=== PATIENT | female | born 1960 | race Hispanic/Latino ===

== ENCOUNTER 2017-12-13 13:20 | Emergency (ER) | payer OTHER ==
[2017-12-13 13:27] VITALS: RESP 17
--- NOTE | 2017-12-13 14:23 | ED PDOC ---
Lower Extremity Pain/Injury Time Seen by Provider: 12/13/17 13:39 Chief Complaint (Nursing): Lower Extremity Problem/Injury Chief Complaint (Provider): LOWER LEG PAIN History Per: Patient (57 Y/O FEMALE HERE WITH INTERMITTENT, ONGOING ERYTHEMA LOWER EXTREMITY X FEW WEEKS WITH TREATMENT WITH AUGMENTIN AND THEN BACTRIM BY PMD. PATIENT ADVISED TO F/U IN ED FOR WORSENING SYMPTOMS. DENIES ANY FEVERS/ CHILLS. HAS REFERRAL TO PODIATRY BUT HAS NOT SEEN OF YET.) Past Medical History Reviewed: Historical Data, Nursing Documentation, Vital Signs Vital Signs: Last Vital Signs Temp 99 F 12/13/17 13:24 Pulse 104 H 12/13/17 13:24 Resp 17 12/13/17 13:24 BP Pulse Ox 99 12/13/17 13:24 - Family History Family History: States: No Known Family Hx - Home Medications Home Medications: Ambulatory Orders Medication Instructions Recorded Compression Socks, Medium [Futuro 1 each MC DAILY PRN #1 each 12/13/17 Restoring] - Allergies Allergies/Adverse Reactions: Allergies Allergy/AdvReac Type Severity Reaction Status Date / Time No Known Allergies Allergy Verified 12/13/17 13:24 Review of Systems ROS Statement: Except As Marked, All Systems Reviewed And Found Negative Physical Exam - Reviewed Nursing Documentation Reviewed: Yes Vital Signs Reviewed: Yes - Physical Exam Appears: Positive for: Well, Non-toxic, No Acute Distress Head Exam: Positive for: ATRAUMATIC, NORMAL INSPECTION, NORMOCEPHALIC Skin: Positive for: Normal Color, Warm, DRY Eye Exam: Positive for: EOMI, Normal appearance, PERRL ENT: Positive for: Normal ENT Inspection Neck: Positive for: Normal, Painless ROM Cardiovascular/Chest: Positive for: Regular Rate, Rhythm Respiratory: Positive for: CNT, Normal Breath Sounds Gastrointestinal/Abdominal: Positive for: Normal Exam, Soft Back: Positive for: Normal Inspection Extremity: Positive for: Normal ROM, Swelling (BILATERAL LOWER EXTREMITY EDEMA. MINIMAL ERYTHEMA NOTED PRE-TIBIAL) Neurologic/Psych: Positive for: Alert, Oriented - Laboratory Results Result Diagrams: 12/13/17 14:39 - ECG O2 Sat by Pulse Oximetry: 99 - Progress ED Course And Treament: DUPLEX: NEG FOR DVT SEEN BY PODIATRY GUO DRESSING PLACED BY THEM. PATIENT TO F/U WITH [facility]PAT[facility]. COMPRESSION STOCKING RX BP 144/77 Disposition - Clinical Impression Clinical Impression: Bilateral lower extremity edema - Patient ED Disposition Is Patient to be Admitted: No - Disposition Referrals: Keyur Toussaint DPM [Staff Provider] - Disposition: Routine/Home Disposition Time: 15:54 Condition: IMPROVED Prescriptions: Compression Socks, Medium [Futuro Restoring] 1 each MC DAILY PRN #1 each PRN Reason: Swelling Instructions: Dependent Edema (DC)
[2017-12-13 14:44] LABS: BASO % 0.5 % (0.0-2.0); EOS # 0.1 K/uL (0.0-0.7); EOS % 1.4 % (0.0-4.0); HEMOGLOBIN 13.6 g/dL (12.0-16.0); LYMPH # 2.1 K/uL (1.0-4.3); LYMPH % 26.2 % (20.0-40.0); MEAN CELL VOLUME 85.9 fl (81.0-99.0); MEAN CORPUSCULAR HEMOGLOBIN 28.9 pg (27.0-31.0); MEAN CORPUSCULAR HGB CONC 33.6 g/dL (33.0-37.0); MEAN PLATELET VOLUME 8.7 fl (7.2-11.7); MONO # 0.5 K/uL (0.0-0.8); MONO % 5.8 % (0.0-10.0); NEUT # 5.2 K/uL (1.8-7.0); NEUT % 66.1 % (50.0-75.0); NRBC % 0.1 % (0.0-0.0); RBC 4.7 Mil/uL (3.80-5.20); RED CELL DISTRIBUTION WIDTH 14.6 % (11.5-14.5); WHITE BLOOD COUNT 7.9 K/uL (4.8-10.8)
--- NOTE | 2017-12-13 14:58 | CP.PCM.CON ---
History of Present Illness - History of Present Illness History of Present Illness: Podiatry consult notes for attending Dr. Walden 57 y/o F patient with PMH of HTN and DM seen and examined at the ED for b/l LE swelling, redness and pain. Patient is AAO X 3 and NAD. Patient is setting comfortably in bed. Patient states that her problem started last march when she had swelling in both of her legs. She states that her legs were weeping. She states that by that time she didn't have insurance so she went to a walk-in clinic where an antibiotic were prescribed to her and she took it and felt better. patient states that last August she started to develop swelling again in both legs with minute weeping superficial ulcers. She states that by that time she got insurance so, She went to an MD Doctor who gave her augmentin antibiotic and took culuture from her ulcers. Patient states that her culture came back as staph aureus. Her doctor Switched her to bactrim. Patient states that she felt better after finishing the bactrimcourse. Patient states that a week ago she started to develop some redness and pain in the side of her legs Left > Right. Patient states that she comes to the ED because of that. atient denies any F/N/V/C/ or SOB. Patient denies any other pedal complaint. PMH: DM, HTN PSH: None Allergies: NKDA Social HX: Denies smoking, EtOH use and illicit drug use. Review of Systems - Review of Systems Review of Systems: As Per HPI Past Patient History - Past Social History Smoking Status: Never Smoked - PSYCHIATRIC Hx Substance Use: No Meds Home Medications: Home Medication List Medication Instructions Recorded Confirmed Type Compression Socks, Medium [Futuro 1 each MC DAILY PRN #1 each 12/13/17 Rx Restoring] Allergies/Adverse Reactions: Allergies Allergy/AdvReac Type Severity Reaction Status Date / Time No Known Allergies Allergy Verified 12/13/17 13:24 Physical Exam - Constitutional Appears: Well, Non-toxic, No Acute Distress - Head Exam Head Exam: ATRAUMATIC, NORMOCEPHALIC - Extremities Exam Additional comments: LE focused exam: Vasc: DP 2/4 b/l. PT couldn't be palpated due to edema. Cap refill < 3 sec in all digits. Temp gradient from warm to warm b/l. Massive LE non pitting edema extending up to the tibial tuberosity b/l. Neuro: Protective and gross sensation are intact. Derm: No open lesions, mild erythema noted b/l extending between the ankle and the calf. dry scaly area extending between the ankle and the calf b/l. MSK: Muscle power intact 5/5 b/l in all groups. All foot and ankle major joints ROM are WNL. - Neurological Exam Neurological exam: Alert, Oriented x3 - Psychiatric Exam Psychiatric exam: Normal Affect, Normal Mood Results - Vital Signs Recent Vital Signs: Last Vital Signs Temp 99 F 12/13/17 13:24 Pulse 104 H 12/13/17 13:24 Resp 17 12/13/17 13:24 BP Pulse Ox 99 12/13/17 14:27 - Labs Result Diagrams: 12/13/17 14:39 Assessment & Plan - Assessment and Plan (Free Text) Assessment: 57 y/o F patient seen and examined at the ED for b/l LE Edema and erythema. Plan: Patient seen and evaluated in the ED. Plan discussed in details with attending Dr. Walden. Chart, Vitals and Labs reviewed; No leukocytosis, afebrile B/L LE duplex reveals no evidence of DVT b/l. Patient instructed to get Compression stockings 10-20 mmhg from medical supply store. Script given to the patient for Compression stockings 10-20 mmhg. Patient instructed to wear the compression stockings all the times while she is standing or walking. Patient advised to come back to the ED if the redness increases, if she has hotness or open lesions in her LE or if she has any (F/N/V/C) Patient expressed verbal understanding. Patient to F/U in Dr. Walden office. - Date & Time Date: 12/13/17 Time: 15:11
--- NOTE | 2017-12-13 15:22 | US ---
Date of service: 12/13/2017 PROCEDURE: Bilateral lower extremity venous duplex Doppler. HISTORY: R/O DVT COMPARISON: None available. TECHNIQUE: Bilateral common femoral, superficial femoral, popliteal and posterior tibial veins were evaluated. Flow was assessed with color Doppler, compressibility, assessment of phasic flow and augmentation response. FINDINGS: COMMON FEMORAL VEIN: Right CFV: Unremarkable. Left CFV: Unremarkable. SUPERFICIAL FEMORAL VEIN: Right SFV: Unremarkable. Left SFV: Unremarkable. POPLITEAL VEIN: Right Popliteal: Unremarkable. Left Popliteal: Unremarkable. POSTERIOR TIBIAL VEIN: Right PTV: Not visible. Left PTV: Not visible. OTHER FINDINGS: None. IMPRESSION: No evidence of deep venous thrombosis.Limitations of the current examination: Posterior tibial vein not visualized bilaterally.
[2017-12-13 16:12] VITALS: BP 144/77; PULSE 75; TEMP 98.2
[2017-12-14 15:38] VITALS: O2SAT 99
== END 2017-12-13 16:14 | disposition home or self-care (01) ==
LOC: H.ER 13:20 → SUPCPDRO 13:20 → H.ER 16:14
DX: R60.0 Localized edema (principal); E11.9 Type 2 diabetes mellitus without complications; I10 Essential (primary) hypertension

== ENCOUNTER 2018-03-31 18:09 | Inpatient (IN) | payer OTHER ==
[2018-03-31] MEDS ORDERED: Ciprofloxacin 400mg/200ml D5W 400 MG/200 ML BAG IVPB STA (18:38)
--- NOTE | 2018-03-31 18:46 | ED PDOC ---
Lower Extremity Pain/Injury Time Seen by Provider: 03/31/18 18:32 Chief Complaint (Nursing): Back Pain Chief Complaint (Provider): left lower extremity pain, swelling and redness History Per: Patient History/Exam Limitations: no limitations Onset/Duration Of Symptoms: Days (x2) Current Symptoms Are (Timing): Still Present Additional Complaint(s): Lanie Ayers is a 58 year old female, with a past medical history of diabetes, HTN and hypercholesterolemia, who presents to the emergency department complaining of shaking chills associated with redness, swelling and pain to left lower extremity onset for x2 days. Patient states she has not taken her temperature. Patient has been on antibiotics previously for the same with no improvements. She denies any cough or other medical complaints. PMD: None provided. Past Medical History Reviewed: Historical Data, Nursing Documentation, Vital Signs Vital Signs: Last Vital Signs Temp 98 F 03/31/18 18:13 Pulse 127 H 03/31/18 18:13 Resp 26 H 03/31/18 18:13 BP 157/66 H 03/31/18 18:13 Pulse Ox 98 03/31/18 18:13 - Medical History PMH: Diabetes, HTN, Hypercholesterolemia - Surgical History Surgical History: No Surg Hx - Family History Family History: States: Unknown Family Hx - Home Medications Home Medications: Ambulatory Orders Medication Instructions Recorded Atorvastatin [Lipitor] 40 mg PO DAILY 03/31/18 Liraglutide [Victoza 2-Paco] 1.2 mg SQ DAILY 03/31/18 RX: Lisinopril [Zestril] 40 mg PO DAILY 03/31/18 RX: MetFORMIN [glucoPHAGE] 1 tab PO DAILY 03/31/18 - Allergies Allergies/Adverse Reactions: Allergies Allergy/AdvReac Type Severity Reaction Status Date / Time No Known Allergies Allergy Verified 03/31/18 18:13 Review of Systems ROS Statement: Except As Marked, All Systems Reviewed And Found Negative Constitutional: Positive for: Chills Respiratory: Negative for: Cough Musculoskeletal: Positive for: Leg Pain (left lower extremity pain, swelling and redness) Physical Exam - Reviewed Nursing Documentation Reviewed: Yes Vital Signs Reviewed: Yes - Physical Exam Appears: Positive for: No Acute Distress Head Exam: Positive for: ATRAUMATIC, NORMAL INSPECTION, NORMOCEPHALIC Skin: Positive for: Normal Color, Warm, Dry Eye Exam: Positive for: Normal appearance, EOMI, PERRL Neck: Positive for: Normal, Painless ROM Cardiovascular/Chest: Positive for: Regular Rate, Rhythm. Negative for: Murmur Respiratory: Positive for: Normal Breath Sounds. Negative for: Respiratory Distress Gastrointestinal/Abdominal: Positive for: Normal Exam, Soft. Negative for: Tenderness Back: Positive for: Normal Inspection. Negative for: L CVA Tenderness, R CVA Tenderness, Vertebral Tenderness Extremity: Positive for: Normal ROM (lower extremities), Swelling (Left lower extremity erythema, swelling anteriorly and laterally with erysipelas laterally.). Negative for: Calf Tenderness, Deformity Neurologic/Psych: Positive for: Alert, Oriented - Laboratory Results Result Diagrams: 04/01/18 04:20 04/01/18 04:20 - ECG O2 Sat by Pulse Oximetry: 98 (RA) Pulse Ox Interpretation: Normal Medical Decision Making Medical Decision Making: Time: 18:32 Initial Plan: --VBG Shock Panel --CMP --Urine dipstick --CBC w/ differential --Chest two views (PA/LAT) [RAD] --Cipro 400 mg in 200 ml IVPB --Toradol 30 mg IVP --Vancomycin Inj 1gm sodium chloride 0.9% 250 ml --Blood culture --Reevaluation Scribe Attestation: Documented by Ras Clark, acting as a scribe for Prakash Mcnamara MD. Provider Scribe Attestation: All medical record entries made by the Scribe were at my direction and personally dictated by me. I have reviewed the chart and agree that the record accurately reflects my personal performance of the history, physical exam, medical decision making, and the department course for this patient. I have also personally directed, reviewed, and agree with the discharge instructions and disposition. Disposition - Clinical Impression Clinical Impression: Cellulitis, Sepsis - Patient ED Disposition Is Patient to be Admitted: Yes - Disposition Disposition Time: 19:00 Condition: FAIR - Pt Status Changed To: Hospital Disposition Of: Inpatient - Admit Certification Admit to Inpatient:: After my assessment, the patient will require hospitalization for at least two midnights. This is because of the severity of symptoms shown, intensity of services needed, and/or the medical risk in this patient being treated as an outpatient. - POA Present On Arrival: None
[2018-03-31] MEDS ORDERED: Ciprofloxacin 400mg/200ml D5W 400 MG/200 ML BAG IVPB ONE (18:48)
[2018-03-31 19:33] LABS: VENOUS BLOOD GAS PCO2 46 mmHg (40-60); VENOUS BLOOD GAS PO2 14 mm/Hg (30-55)
[2018-03-31 19:36] LABS: BASO # 0.1 K/uL (0.0-0.2); BASO % 0.6 % (0.0-2.0); EOS % 0.3 % (0.0-4.0); LYMPH % 6.8 % (20.0-40.0); MEAN CELL VOLUME 89.2 fl (81.0-99.0); MEAN CORPUSCULAR HEMOGLOBIN 29.3 pg (27.0-31.0); MEAN CORPUSCULAR HGB CONC 32.8 g/dL (33.0-37.0); MEAN PLATELET VOLUME 8.5 fl (7.2-11.7); MONO # 0.7 K/uL (0.0-0.8); MONO % 4.6 % (0.0-10.0); NEUT # 12.7 K/uL (1.8-7.0); NEUT % 87.7 % (50.0-75.0); PLATELET COUNT 179 K/uL (130-400); RBC 4.44 Mil/uL (3.80-5.20); RED CELL DISTRIBUTION WIDTH 13.6 % (11.5-14.5); WHITE BLOOD COUNT 14.5 K/uL (4.8-10.8)
[2018-03-31 19:46] LABS: ALB/GLOB RATIO 1.4 (1.0-2.1); ALBUMIN 4.7 g/dL (3.5-5.0); ALT/SGPT 36 U/L (9-52); AST/SGOT 26 U/L (14-36); BLOOD UREA NITROGEN 20 mg/dl (7-17); CALCIUM 9.4 mg/dL (8.4-10.2); GFR NON-AFRICAN AMERICAN > 60
[2018-03-31] MEDS ORDERED: Sodium Chloride 0.9% 2,000 ML IV SCH (21:00)
[2018-03-31 21:21] LABS: BANDS 4 % (0-2); BASOPHIL 1 % (0-2); LYMPHOCYTE 9 % (20-50); MONOCYTE 5 % (0-10); NEUTROPHIL 80 % (42-75); REACTIVE LYMPHOCYTES 1 % (0-0); TOTAL CELLS COUNTED 100
[2018-03-31 21:22] LABS: HYPOCHROMIC SLIGHT; PLATELET ESTIMATE NORMAL (NORMAL); POLYCHROMIC SLIGHT; TOXIC GRANULATION PRESENT
[2018-03-31 22:46] LABS: VENOUS BLOOD GAS BASE EXCESS -0.1 mmol/L (0.0-2.0); VENOUS BLOOD GAS PCO2 36 mmHg (40-60); VENOUS BLOOD GAS PO2 55 mm/Hg (30-55); VENOUS BLOOD PH 7.43 (7.32-7.43)
[2018-04-01] MEDS ORDERED: Pneumococcal 23-Valent Vaccine IM ONE (00:02)
[2018-04-01] MEDS: Cefepime 1 GM in Sodium Chloride 0.9% 100 ML IVPB SCH ×3 (00:27→21:32)
[2018-04-01 05:31] LABS: HEMOGLOBIN 10.7 g/dL (12.0-16.0); MEAN CELL VOLUME 89.6 fl (81.0-99.0); MEAN CORPUSCULAR HEMOGLOBIN 29.4 pg (27.0-31.0); MEAN CORPUSCULAR HGB CONC 32.9 g/dL (33.0-37.0); RBC 3.64 Mil/uL (3.80-5.20); RED CELL DISTRIBUTION WIDTH 13.7 % (11.5-14.5); WHITE BLOOD COUNT 13.7 K/uL (4.8-10.8)
[2018-04-01 05:40] LABS: ALB/GLOB RATIO 1.2 (1.0-2.1); ALBUMIN 3.3 g/dL (3.5-5.0); ALT/SGPT 33 U/L (9-52); AST/SGOT 27 U/L (14-36); BLOOD UREA NITROGEN 20 mg/dl (7-17); CALCIUM 8.5 mg/dL (8.4-10.2); GFR NON-AFRICAN AMERICAN 51
[2018-04-01 05:51] LABS: SQUAMOUS EPITHIAL 1 /hpf (0-5); URINE BACTERIA RARE (<OCC); URINE BILIRUBIN NEGATIVE (NEGATIVE); URINE BLOOD MODERATE (NEGATIVE); URINE CLARITY SLIGHTY-CLOUDY (Clear); URINE COLOR YELLOW (YELLOW); URINE GLUCOSE (UA) NEG (Normal); URINE LEUKOCYTE ESTERASE NEG Leu/uL (Negative); URINE PROTEIN NEGATIVE (NEGATIVE); URINE UROBILINOGEN 0.2-1.0 mg/dL (0.2-1.0)
[2018-04-01] MEDS: Insulin Lispro (humaLOG) 100 Units/ml Inj SC SCH ×4 (06:37→21:41)
--- NOTE | 2018-04-01 10:15 | US ---
Date of service: 03/31/2018 HISTORY: swelling and pain. PRIORS: None. FINDINGS: 2-D, color and duplex Doppler analysis of the lower extremity venous circulation using routine protocol from the femoral veins through the popliteal veins. Venous compressibility: Normal. Flow and augmentation patterns: Normal. Visualized veins upper third of calf: Normal. High cyst: None. IMPRESSION: No sonographic or Doppler evidence for DVT in left lower extremity. The preliminary findings for this examination were reported by [facility] at 11:10 p.m. on 03/31/2018. There is concurrence of this report with the preliminary findings.
--- NOTE | 2018-04-01 11:01 | RAD ---
Date of service: 03/31/2018 HISTORY: Fever COMPARISON: No prior. FINDINGS: LUNGS: No active pulmonary disease. PLEURA: No significant pleural effusion identified, no pneumothorax apparent. CARDIOVASCULAR: No aortic atherosclerotic calcification present. Normal cardiac size. No pulmonary vascular congestion. OSSEOUS STRUCTURES: No significant abnormalities. VISUALIZED UPPER ABDOMEN: Normal. OTHER FINDINGS: None. IMPRESSION: No active disease.
--- NOTE | 2018-04-01 13:01 | CP.PCM.HP ---
<Nirav Sebastian - Last Filed: 04/01/18 13:15> History of Present Illness - History of Present Illness History of Present Illness: 58 y/o F patient with PMH of HTN, DM and HLD was admitted for evaluation and management of b/l lower leg cellulitis. Pt started noticing bilateral lower leg redness since several days ago. Pt visited his PCP last week who prescribed her unspecified antibiotics but NO improvement. Pt was prescribed PO Bactrim and topical bacitracin and then topical Bactroban. Pt complains of associated fever and chills. No ill contacts. No recent travels. Pt denies trauma, chest pain, SOB, abdominal pain, nausea, vomiting or diarrhea. PMD: Dr Randall PMH: DM, HTN and HLD PSH: denied Allergies: NKDA Social HX: Denies smoking, EtOH use and illicit drug use. Present on Admission - Present on Admission Any Indicators Present on Admission: No Review of Systems - Constitutional Constitutional: Chills, Fever - EENT Eyes: absent: Change in Vision Nose/Mouth/Throat: absent: Nasal Congestion, Sore Throat, Facial Pain, Neck Mass - Breasts Breasts: absent: Change in Shape, Mass, Pain - Cardiovascular Cardiovascular: absent: Chest Pain, Dyspnea, Palpitations - Respiratory Respiratory: absent: Cough, Dyspnea, Hemoptysis - Gastrointestinal Gastrointestinal: absent: Abdominal Pain, Cramping, Hematochezia, Nausea, Vomit ing - Genitourinary Genitourinary: absent: Dysuria, Flank Pain, Hematuria Past Patient History - Past Medical History & Family History Past Medical History?: Yes - Past Social History Smoking Status: Never Smoked - CARDIAC Hx Hypercholesterolemia: Yes Hx Hypertension: Yes - PULMONARY Hx Respiratory Disorders: Yes Hx Bronchitis: Yes - NEUROLOGICAL Hx Neurological Disorder: No - HEENT Hx HEENT Problems: No - RENAL Hx Chronic Kidney Disease: No - ENDOCRINE/METABOLIC Hx Endocrine Disorders: Yes Hx Diabetes Mellitus Type 2: Yes - HEMATOLOGICAL/ONCOLOGICAL Hx Blood Disorders: No Hx AIDS: No Hx Human Immunodeficiency Virus (HIV): No - INTEGUMENTARY Hx Dermatological Problems: No - MUSCULOSKELETAL/RHEUMATOLOGICAL Hx Musculoskeletal Disorders: Yes Hx Arthritis: Yes Hx Falls: Yes - GASTROINTESTINAL Hx Gastrointestinal Disorders: No - GENITOURINARY/GYNECOLOGICAL Hx Genitourinary Disorders: No - PSYCHIATRIC Hx Psychophysiologic Disorder: No Hx Substance Use: No - SURGICAL HISTORY Hx Surgeries: No - ANESTHESIA Hx Anesthesia: No Hx Anesthesia Reactions: No Meds Allergies/Adverse Reactions: Allergies Allergy/AdvReac Type Severity Reaction Status Date / Time No Known Allergies Allergy Verified 03/31/18 18:13 Physical Exam - Constitutional Appears: No Acute Distress - Eye Exam Eye Exam: EOMI, Normal appearance - ENT Exam ENT Exam: Mucous Membranes Moist - Neck Exam Neck exam: Positive for: Full Rom, Normal Inspection. Negative for: Meningismus - Respiratory Exam Respiratory Exam: NORMAL BREATHING PATTERN. absent: Rales, Rhonchi, Wheezes, Respiratory Distress - Cardiovascular Exam Cardiovascular Exam: +S1, +S2 - GI/Abdominal Exam GI & Abdominal Exam: Normal Bowel Sounds, Soft. absent: Distended, Guarding, Tenderness - Extremities Exam Extremities exam: Positive for: pedal edema Additional comments: Left lower extremity: Presence of eryt - Neurological Exam Neurological exam: Alert, Oriented x3 Results - Vital Signs Recent Vital Signs: Last Vital Signs Temp 98.6 F 04/01/18 09:00 Pulse 91 H 04/01/18 09:00 Resp 18 04/01/18 09:00 BP 102/67 04/01/18 09:18 Pulse Ox 98 04/01/18 10:09 - Labs Result Diagrams: 04/01/18 04:20 04/01/18 04:20 Labs: Laboratory Results - last 24 hr 03/31/18 03/31/18 03/31/18 18:36 19:10 19:10 WBC 14.5 H D RBC 4.44 Hgb 13.0 Hct 39.6 MCV 89.2 D MCH 29.3 MCHC 32.8 L RDW 13.6 Plt Count 179 MPV 8.5 Neut % (Auto) 87.7 H Lymph % (Auto) 6.8 L [place] % (Auto) 4.6 Eos % (Auto) 0.3 Baso % (Auto) 0.6 Neut # (Auto) 12.7 H Lymph # (Auto) 1.0 [place] # (Auto) 0.7 Eos # (Auto) 0.0 Baso # (Auto) 0.1 Neutrophils % (Manual) 80 H Band Neutrophils % 4 H Lymphocytes % (Manual) 9 L Reactive Lymphs % 1 H Monocytes % (Manual) 5 Basophils % (Manual) 1 Toxic Granulation Present Platelet Estimate Normal Polychromasia Slight Hypochromasia (manual) Slight ESR pO2 14 L VBG pH 7.40 VBG pCO2 46 VBG HCO3 25.1 VBG Total CO2 29.9 H VBG O2 Sat (Calc) 22.3 L VBG Base Excess 3.0 H VBG Potassium 4.4 Sodium 138.0 141 Chloride 103.0 104 Glucose 184 H Lactate 2.2 H FiO2 21.0 Potassium 4.7 Carbon Dioxide 25 Anion Gap 17 BUN 20 H Creatinine 0.9 Est GFR ( Amer) > 60 Est GFR (Non-Af Amer) > 60 POC Glucose (mg/dL) Random Glucose 179 H Calcium 9.4 Total Bilirubin 0.5 AST 26 ALT 36 Alkaline Phosphatase 88 Total Protein 8.0 Albumin 4.7 Globulin 3.3 Albumin/Globulin Ratio 1.4 Venous Blood Potassium 4.4 Urine Color Urine Clarity Urine pH Ur Specific [place] Urine Protein Urine Glucose (UA) Urine Ketones Urine Blood Urine Nitrate Urine Bilirubin Urine Urobilinogen Ur Leukocyte Esterase Urine RBC (Auto) Urine Microscopic WBC Ur Squamous Epith Cells Urine Bacteria 03/31/18 03/31/18 04/01/18 19:53 22:00 04:20 WBC 13.7 H RBC 3.64 L Hgb 10.7 L D Hct 32.6 L MCV 89.6 MCH 29.4 MCHC 32.9 L RDW 13.7 Plt Count 154 MPV Neut % (Auto) Lymph % (Auto) [place] % (Auto) Eos % (Auto) Baso % (Auto) Neut # (Auto) Lymph # (Auto) [place] # (Auto) Eos # (Auto) Baso # (Auto) Neutrophils % (Manual) Band Neutrophils % Lymphocytes % (Manual) Reactive Lymphs % Monocytes % (Manual) Basophils % (Manual) Toxic Granulation Platelet Estimate Polychromasia Hypochromasia (manual) ESR 49 H pO2 55 VBG pH 7.43 VBG pCO2 36 L VBG HCO3 24.6 VBG Total CO2 25.0 VBG O2 Sat (Calc) 93.7 H VBG Base Excess -0.1 L VBG Potassium 4.0 Sodium 135.0 Chloride 105.0 Glucose 242 H Lactate 1.6 FiO2 21.0 Potassium Carbon Dioxide Anion Gap BUN Creatinine Est GFR ( Amer) Est GFR (Non-Af Amer) POC Glucose (mg/dL) 155 H Random Glucose Calcium Total Bilirubin AST ALT Alkaline Phosphatase Total Protein Albumin Globulin Albumin/Globulin Ratio Venous Blood Potassium 4.0 Urine Color Urine Clarity Urine pH Ur Specific [place] Urine Protein Urine Glucose (UA) Urine Ketones Urine Blood Urine Nitrate Urine Bilirubin Urine Urobilinogen Ur Leukocyte Esterase Urine RBC (Auto) Urine Microscopic WBC Ur Squamous Epith Cells Urine Bacteria 04/01/18 04/01/18 04/01/18 04:20 05:11 05:42 WBC RBC Hgb Hct MCV MCH MCHC RDW Plt Count MPV Neut % (Auto) Lymph % (Auto) [place] % (Auto) Eos % (Auto) Baso % (Auto) Neut # (Auto) Lymph # (Auto) [place] # (Auto) Eos # (Auto) Baso # (Auto) Neutrophils % (Manual) Band Neutrophils % Lymphocytes % (Manual) Reactive Lymphs % Monocytes % (Manual) Basophils % (Manual) Toxic Granulation Platelet Estimate Polychromasia Hypochromasia (manual) ESR pO2 VBG pH VBG pCO2 VBG HCO3 VBG Total CO2 VBG O2 Sat (Calc) VBG Base Excess VBG Potassium Sodium 139 Chloride 107 Glucose Lactate FiO2 Potassium 4.2 Carbon Dioxide 26 Anion Gap 10 BUN 20 H Creatinine 1.1 Est GFR ( Amer) > 60 Est GFR (Non-Af Amer) 51 POC Glucose (mg/dL) 156 H Random Glucose 164 H Calcium 8.5 Total Bilirubin 0.7 AST 27 ALT 33 Alkaline Phosphatase 61 Total Protein 6.0 L Albumin 3.3 L D Globulin 2.8 Albumin/Globulin Ratio 1.2 Venous Blood Potassium Urine Color Yellow Urine Clarity Slighty-cloudy Urine pH 5.0 Ur Specific [place] 1.024 Urine Protein Negative Urine Glucose (UA) Neg Urine Ketones Trace Urine Blood Moderate Urine Nitrate Negative Urine Bilirubin Negative Urine Urobilinogen 0.2-1.0 Ur Leukocyte Esterase Neg Urine RBC (Auto) 1 Urine Microscopic WBC 1 Ur Squamous Epith Cells 1 Urine Bacteria Rare 04/01/18 11:03 WBC RBC Hgb Hct MCV MCH MCHC RDW Plt Count MPV Neut % (Auto) Lymph % (Auto) [place] % (Auto) Eos % (Auto) Baso % (Auto) Neut # (Auto) Lymph # (Auto) [place] # (Auto) Eos # (Auto) Baso # (Auto) Neutrophils % (Manual) Band Neutrophils % Lymphocytes % (Manual) Reactive Lymphs % Monocytes % (Manual) Basophils % (Manual) Toxic Granulation Platelet Estimate Polychromasia Hypochromasia (manual) ESR pO2 VBG pH VBG pCO2 VBG HCO3 VBG Total CO2 VBG O2 Sat (Calc) VBG Base Excess VBG Potassium Sodium Chloride Glucose Lactate FiO2 Potassium Carbon Dioxide Anion Gap BUN Creatinine Est GFR ( Amer) Est GFR (Non-Af Amer) POC Glucose (mg/dL) 189 H Random Glucose Calcium Total Bilirubin AST ALT Alkaline Phosphatase Total Protein Albumin Globulin Albumin/Globulin Ratio Venous Blood Potassium Urine Color Urine Clarity Urine pH Ur Specific [place] Urine Protein Urine Glucose (UA) Urine Ketones Urine Blood Urine Nitrate Urine Bilirubin Urine Urobilinogen Ur Leukocyte Esterase Urine RBC (Auto) Urine Microscopic WBC Ur Squamous Epith Cells Urine Bacteria Assessment & Plan - Assessment and Plan (Free Text) Assessment: 58 y/o F patient with PMH of HTN, DM and HLD was admitted for evaluation and management of b/l lower leg cellulitis. PLAN: --Fever overnight, elevated WBC, tachycardia and cellulitis as source of infection. Pt meets Sepsis criteria. --IV Cefepime and Vancomycin --Home meds resumed --ID consult, Dr Alvarez --COntinue managemetn as ordered. Case discussed with Dr Aburto who agrees with the above NILDA Estrella PGY-2 - Date & Time Date: 04/01/18 Time: 09:20 <Osman Aburto - Last Filed: 04/04/18 22:52> Results - Vital Signs Recent Vital Signs: Last Vital Signs Temp 98.7 F 04/04/18 21:30 Pulse 85 04/04/18 20:49 Resp 18 04/04/18 20:49 BP 140/84 04/04/18 20:49 Pulse Ox 96 04/04/18 20:49 - Labs Result Diagrams: 04/02/18 05:15 04/04/18 04:20 Labs: Laboratory Results - last 24 hr 04/02/18 04/02/18 04/02/18 11:16 16:21 21:33 Sodium Potassium Chloride Carbon Dioxide Anion Gap BUN Creatinine Est GFR ( Amer) Est GFR (Non-Af Amer) POC Glucose (mg/dL) 210 H 97 161 H Random Glucose Calcium Total Bilirubin AST ALT Alkaline Phosphatase Total Protein Albumin Globulin Albumin/Globulin Ratio 04/03/18 04/03/18 04/03/18 05:06 10:49 17:31 Sodium Potassium Chloride Carbon Dioxide Anion Gap BUN Creatinine Est GFR ( Amer) Est GFR (Non-Af Amer) POC Glucose (mg/dL) 136 H 221 H 115 H Random Glucose Calcium Total Bilirubin AST ALT Alkaline Phosphatase Total Protein Albumin Globulin Albumin/Globulin Ratio 04/03/18 04/04/18 04/04/18 22:21 04:20 05:23 Sodium 142 Potassium 4.7 Chloride 110 H Carbon Dioxide 26 Anion Gap 11 BUN 17 Creatinine 1.1 Est GFR ( Amer) > 60 Est GFR (Non-Af Amer) 51 POC Glucose (mg/dL) 141 H 133 H Random Glucose 140 H Calcium 8.9 Total Bilirubin 0.5 AST 30 ALT 57 H D Alkaline Phosphatase 78 Total Protein 6.4 Albumin 3.4 L Globulin 2.9 Albumin/Globulin Ratio 1.2 04/04/18 04/04/18 11:48 16:18 Sodium Potassium Chloride Carbon Dioxide Anion Gap BUN Creatinine Est GFR ( Amer) Est GFR (Non-Af Amer) POC Glucose (mg/dL) 248 H 146 H Random Glucose Calcium Total Bilirubin AST ALT Alkaline Phosphatase Total Protein Albumin Globulin Albumin/Globulin Ratio Assessment & Plan - Assessment and Plan (Free Text) Plan: I was present during evaluation and discussed with Dr Sebastian re plans of care and mgt Osman Aburto M.D.
[2018-04-01] MEDS: Ammonium Lactate 12% Cream (140 g) TOP SCH (13:46)
--- NOTE | 2018-04-01 19:39 | CP.PCM.PN ---
Subjective - Date & Time of Evaluation Date of Evaluation: 04/01/18 Time of Evaluation: 19:35 - Subjective Subjective: I D NOTE PATIENT CONSUT DICTATED CONTINUE PRESENT COVERAGE WILL RE EVALUATE TOMORROW [facility] Objective - Vital Signs/Intake and Output Vital Signs (last 24 hours): Temp Pulse Resp BP Pulse Ox 99.4 F 89 18 106/68 97 04/01/18 16:42 04/01/18 16:42 04/01/18 16:42 04/01/18 16:42 04/01/18 16:42 - Medications Medications: Current Medications Acetaminophen (Tylenol 325mg Tab) 650 mg PO Q6 PRN PRN Reason: Pain, moderate (4-7) Last Admin: 04/01/18 09:39 Dose: 650 mg Atorvastatin Calcium (Lipitor) 40 mg PO DAILY [facility] Last Admin: 04/01/18 09:15 Dose: 40 mg Enoxaparin Sodium (Lovenox) 40 mg SC DAILY [facility]; Protocol Vancomycin HCl 1 gm/ Sodium (Chloride) 250 mls @ 166.667 mls/hr IVPB Q12 [facility]; P rotocol Last Admin: 04/01/18 09:13 Dose: 166.667 mls/hr Cefepime HCl 1 gm/ Sodium (Chloride) 100 mls @ 100 mls/hr IVPB Q12 [facility]; Protocol Last Admin: 04/01/18 09:12 Dose: 100 mls/hr Ibuprofen (Motrin Tab) 400 mg PO BID PRN PRN Reason: Fever >100.4 F Insulin Human Lispro (Humalog) 0 units SC ACHS [facility]; Protocol Last Admin: 04/01/18 16:49 Dose: Not Given Lactic Acid (Lac-Hydrin 12% Cream (140 G)) 1 ea TOP DAILY [facility] Last Admin: 04/01/18 13:46 Dose: 1 applic Lisinopril (Zestril) 40 mg PO DAILY [facility] Last Admin: 04/01/18 09:18 Dose: 40 mg Metformin HCl (Glucophage) 1,000 mg PO DAILY [facility] Last Admin: 04/01/18 09:15 Dose: 1,000 mg - Labs Labs: 04/01/18 04:20 04/01/18 04:20
--- NOTE | 2018-04-02 05:27 | CON ---
DATE: 04/01/2018 INFECTIOUS DISEASE CONSULTATION HISTORY OF PRESENT ILLNESS: The patient is a 58-year-old female who has a past medical history of diabetes, hypertension, and hypercholesterolemia. She came to the emergency department complaining of shaking chills associated with erythema, swelling, and pain in the left lower extremity for 48 hours. She has not taken a temperature, unaware of any fever. The patient has been on antibiotics previously and oral antibiotics, it did not improve. There were any other complaints. PHYSICAL EXAMINATION: GENERAL: The patient is alert, cooperative, and oriented to time and place. HEENT: Within [place] limits. NECK: Supple. LUNGS: Some decreased breath sounds, but clear. HEART: Regular sinus rhythm. ABDOMEN: Soft. Positive bowel sounds. EXTREMITIES: Swelling of left lower extremity with erythema and . No calf tenderness. LABORATORY DATA: Cultures are pending. White count is 14.5, hemoglobin is 13, there is a left shift, there are 4 bands, platelets are 179, and sed rate is 49. Creatinine is 1.1, GFR is 51. Hemoglobin A1c is 8.3. DIAGNOSIS: The patient has cellulitis of left lower extremity. PLAN: I have started vancomycin and Maxipime. We will adjust the dose of vancomycin, pending renal function. Josiah Alvarez MD
[2018-04-02] MEDS: Insulin Lispro (humaLOG) 100 Units/ml Inj SC SCH ×4 (06:31→22:23)
[2018-04-02 06:44] LABS: MEAN CELL VOLUME 90.2 fl (81.0-99.0); MEAN CORPUSCULAR HEMOGLOBIN 29.3 pg (27.0-31.0); MEAN CORPUSCULAR HGB CONC 32.5 g/dL (33.0-37.0); RBC 3.76 Mil/uL (3.80-5.20); RED CELL DISTRIBUTION WIDTH 14.1 % (11.5-14.5); WHITE BLOOD COUNT 7.5 K/uL (4.8-10.8)
[2018-04-02 07:13] LABS: ALB/GLOB RATIO 1.1 (1.0-2.1); ALBUMIN 3.2 g/dL (3.5-5.0); CALCIUM 8.6 mg/dL (8.4-10.2)
[2018-04-02] MEDS: Ammonium Lactate 12% Cream (140 g) TOP SCH (08:36)
[2018-04-02] MEDS: Cefepime 1 GM in Sodium Chloride 0.9% 100 ML IVPB SCH ×2 (08:37→21:00)
[2018-04-02] MEDS: Enoxaparin 40 mg Syringe SC SCH (08:37)
[2018-04-03] MEDS: Insulin Lispro (humaLOG) 100 Units/ml Inj SC SCH ×4 (06:49→23:50)
[2018-04-03] MEDS: Ammonium Lactate 12% Cream (140 g) TOP SCH (09:35)
[2018-04-03] MEDS: Enoxaparin 40 mg Syringe SC SCH (09:36)
[2018-04-03] MEDS: Cefepime 1 GM in Sodium Chloride 0.9% 100 ML IVPB SCH ×2 (09:41→21:39)
--- NOTE | 2018-04-03 10:00 | CP.PCM.PN ---
Subjective - Date & Time of Evaluation Date of Evaluation: 04/03/18 Time of Evaluation: 10:00 - Subjective Subjective: I D NOTE Objective - Vital Signs/Intake and Output Vital Signs (last 24 hours): Temp Pulse Resp BP Pulse Ox 98.2 F 85 18 112/73 96 04/03/18 08:00 04/03/18 09:36 04/03/18 08:00 04/03/18 09:36 04/03/18 08:00 - Medications Medications: Current Medications Acetaminophen (Tylenol 325mg Tab) 650 mg PO Q6 PRN PRN Reason: Pain, moderate (4-7) Last Admin: 04/01/18 09:39 Dose: 650 mg Acetaminophen (Tylenol 325mg Tab) 650 mg PO Q6 [facility] Last Admin: 04/03/18 09:41 Dose: 650 mg Atorvastatin Calcium (Lipitor) 40 mg PO DAILY [facility] Last Admin: 04/03/18 09:36 Dose: 40 mg Enoxaparin Sodium (Lovenox) 40 mg SC DAILY [facility]; Protocol Last Admin: 04/03/18 09:36 Dose: 40 mg Cefepime HCl 1 gm/ Sodium (Chloride) 100 mls @ 100 mls/hr IVPB Q12 [facility]; Protocol Last Admin: 04/03/18 09:41 Dose: 100 mls/hr Vancomycin HCl 500 mg/ Sodium (Chloride) 100 mls @ 100 mls/hr IVPB Q12H [facility]; Protocol Ibuprofen (Motrin Tab) 600 mg PO Q8 [facility] Last Admin: 04/03/18 09:37 Dose: 600 mg Insulin Human Lispro (Humalog) 0 units SC ACHS [facility]; Protocol Last Admin: 04/03/18 06:49 Dose: Not Given Lactic Acid (Lac-Hydrin 12% Cream (140 G)) 1 ea TOP DAILY [facility] Last Admin: 04/03/18 09:35 Dose: Not Given Lisinopril (Zestril) 40 mg PO DAILY [facility] Last Admin: 04/03/18 09:36 Dose: 40 mg Metformin HCl (Glucophage) 1,000 mg PO DAILY [facility] Last Admin: 04/03/18 09:36 Dose: 1,000 mg - Labs Labs: 04/02/18 05:15 04/02/18 05:15
--- NOTE | 2018-04-03 10:15 | CP.PCM.PN ---
Subjective - Date & Time of Evaluation Date of Evaluation: 04/03/18 Time of Evaluation: 10:10 - Subjective Subjective: I D NOTE CREATININE :1.3,GFR4.2 HGBA1C:8.1 HAVE DECREASED VANCOMYCIN TO 500MG IVPB Q12H [facility] TOMORROW Objective - Vital Signs/Intake and Output Vital Signs (last 24 hours): Temp Pulse Resp BP Pulse Ox 98.2 F 85 18 112/73 96 04/03/18 08:00 04/03/18 09:36 04/03/18 08:00 04/03/18 09:36 04/03/18 08:00 - Medications Medications: Current Medications Acetaminophen (Tylenol 325mg Tab) 650 mg PO Q6 PRN PRN Reason: Pain, moderate (4-7) Last Admin: 04/01/18 09:39 Dose: 650 mg Acetaminophen (Tylenol 325mg Tab) 650 mg PO Q6 [facility] Last Admin: 04/03/18 09:41 Dose: 650 mg Atorvastatin Calcium (Lipitor) 40 mg PO DAILY [facility] Last Admin: 04/03/18 09:36 Dose: 40 mg Enoxaparin Sodium (Lovenox) 40 mg SC DAILY [facility]; Protocol Last Admin: 04/03/18 09:36 Dose: 40 mg Cefepime HCl 1 gm/ Sodium (Chloride) 100 mls @ 100 mls/hr IVPB Q12 [facility]; Protocol Last Admin: 04/03/18 09:41 Dose: 100 mls/hr Vancomycin HCl 500 mg/ Sodium (Chloride) 100 mls @ 100 mls/hr IVPB Q12H [facility]; Protocol Ibuprofen (Motrin Tab) 600 mg PO Q8 [facility] Last Admin: 04/03/18 09:37 Dose: 600 mg Insulin Human Lispro (Humalog) 0 units SC ACHS [facility]; Protocol Last Admin: 04/03/18 06:49 Dose: Not Given Lactic Acid (Lac-Hydrin 12% Cream (140 G)) 1 ea TOP DAILY [facility] Last Admin: 04/03/18 09:35 Dose: Not Given Lisinopril (Zestril) 40 mg PO DAILY [facility] Last Admin: 04/03/18 09:36 Dose: 40 mg Metformin HCl (Glucophage) 1,000 mg PO DAILY [facility] Last Admin: 04/03/18 09:36 Dose: 1,000 mg - Labs Labs: 04/02/18 05:15 11/10/18 05:15
[2018-04-04 06:17] LABS: ALB/GLOB RATIO 1.2 (1.0-2.1); ALBUMIN 3.4 g/dL (3.5-5.0); ALT/SGPT 57 U/L (9-52); AST/SGOT 30 U/L (14-36); BLOOD UREA NITROGEN 17 mg/dl (7-17); CALCIUM 8.9 mg/dL (8.4-10.2); GFR NON-AFRICAN AMERICAN 51
[2018-04-04] MEDS: Insulin Lispro (humaLOG) 100 Units/ml Inj SC SCH ×4 (07:04→21:42)
[2018-04-04] MEDS: Ammonium Lactate 12% Cream (140 g) TOP SCH (09:09)
[2018-04-04] MEDS: Enoxaparin 40 mg Syringe SC SCH (09:09)
[2018-04-04] MEDS: Cefepime 1 GM in Sodium Chloride 0.9% 100 ML IVPB SCH ×2 (09:11→21:27)
--- NOTE | 2018-04-04 13:03 | PQF ---
PROVIDER RESPONSE TEXT: Morbid obesity REVIEWER QUERY TEXT: Documentation Clarification Your help is requested in clarifying the following clinical documentation, if you can please further specify in the medical record and discharge summary. The EMR has the patient listed as being 5' 7" , weight of 410 pounds with a BMI of 64.2 Please clarify if there is an associated diagnosis or not to go along with the BMI. If yes please doc ument the BMI and the associated diagnosis/ The patient's Clinical Indicators include: The EMR has the patient listed as being 5' 7" , weight of 410 pounds with a BMI of 64.2 Query created by: Felicity Fleming on 04/01/2018 2:03 PM Electronically signed by: Osman Aburto MD 04/04/2018 1:00 PM
--- NOTE | 2018-04-04 13:08 | CP.PCM.CON ---
History of Present Illness - History of Present Illness History of Present Illness: Podiatry consult note for Dr. Esquivel, 58 year old female, with a past medical history of diabetes, HTN and hypercholesterolemia, who who was seen at bedside for red, hot swollen legs for the last week. Patient has been on antibiotics previously for the same with no improvements. She denies any cough or other medical complaints. Patient states her redness has been decreasing however not completely resolved. 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 Denies seeing any purulent drainage from the leg. Denies keping the wound covered. Admits to chills and fever. PMD: None provided. Past Patient History - Past Medical History & Family History Past Medical History?: Yes - Past Social History Smoking Status: Never Smoked - CARDIAC Hx Hypercholesterolemia: Yes Hx Hypertension: Yes - PULMONARY Hx Respiratory Disorders: Yes Hx Bronchitis: Yes - NEUROLOGICAL Hx Neurological Disorder: No - HEENT Hx HEENT Problems: No - RENAL Hx Chronic Kidney Disease: No - ENDOCRINE/METABOLIC Hx Endocrine Disorders: Yes Hx Diabetes Mellitus Type 2: Yes - HEMATOLOGICAL/ONCOLOGICAL Hx Blood Disorders: No Hx AIDS: No Hx Human Immunodeficiency Virus (HIV): No - INTEGUMENTARY Hx Dermatological Problems: No - MUSCULOSKELETAL/RHEUMATOLOGICAL Hx Musculoskeletal Disorders: Yes Hx Arthritis: Yes Hx Falls: Yes - GASTROINTESTINAL Hx Gastrointestinal Disorders: No - GENITOURINARY/GYNECOLOGICAL Hx Genitourinary Disorders: No - PSYCHIATRIC Hx Psychophysiologic Disorder: No Hx Substance Use: No - SURGICAL HISTORY Hx Surgeries: No - ANESTHESIA Hx Anesthesia: No Hx Anesthesia Reactions: No Meds Allergies/Adverse Reactions: Allergies Allergy/AdvReac Type Severity Reaction Status Date / Time No Known Allergies Allergy Verified 03/31/18 18:13 - Medications Medications: Current Medications Acetaminophen (Tylenol 325mg Tab) 650 mg PO Q6 PRN PRN Reason: Pain, moderate (4-7) Last Admin: 04/01/18 09:39 Dose: 650 mg Acetaminophen (Tylenol 325mg Tab) 650 mg PO Q6 [facility] Last Admin: 04/04/18 09:10 Dose: 650 mg Atorvastatin Calcium (Lipitor) 40 mg PO DAILY [facility] Last Admin: 04/04/18 09:08 Dose: 40 mg Enoxaparin Sodium (Lovenox) 40 mg SC DAILY [facility]; Protocol Last Admin: 04/04/18 09:09 Dose: 40 mg Cefepime HCl 1 gm/ Sodium (Chloride) 100 mls @ 100 mls/hr IVPB Q12 [facility]; Pro tocol Last Admin: 04/04/18 09:11 Dose: 100 mls/hr Vancomycin HCl 500 mg/ Sodium (Chloride) 100 mls @ 100 mls/hr IVPB Q12H [facility]; Protocol Last Admin: 04/04/18 09:11 Dose: 100 mls/hr Ibuprofen (Motrin Tab) 600 mg PO Q8 [facility] Last Admin: 04/04/18 09:08 Dose: 600 mg Insulin Human Lispro (Humalog) 0 units SC ACHS [facility]; Protocol Last Admin: 04/04/18 12:47 Dose: 4 units Lactic Acid (Lac-Hydrin 12% Cream (140 G)) 1 ea TOP DAILY [facility] Last Admin: 04/04/18 09:09 Dose: Not Given Lisinopril (Zestril) 40 mg PO DAILY [facility] Last Admin: 04/04/18 09:08 Dose: 40 mg Metformin HCl (Glucophage) 1,000 mg PO DAILY [facility] Last Admin: 04/04/18 09:07 Dose: 1,000 mg Physical Exam - Constitutional Appears: Well, Non-toxic, No Acute Distress - Head Exam Head Exam: ATRAUMATIC - Extremities Exam Additional comments: Bilateral lower extremity exam: vascular: DP 2/4 b/l, PT nonpalpable secondary to +2 pitting edema, CFT <5 secs x 10, TG warm to cool, edema and erythema noted in both legs circumferentially L>R derm: two open lesions noted on the lateral aspect of the left distal leg, scab covering the ulcer, fibrogranular base, no drainage noted, no malodor, no probe to bone or tendon, daisy wound erythema noted. Multiple scabs notedon the right leg, fulled covered no open wounds neuro: protective sensation intact via ipswich 08/25 ortho: pain upon palpation to both legs L>R - Neurological Exam Neurological exam: Alert, Oriented x3 - Psychiatric Exam Psychiatric exam: Normal Affect - Skin Skin Exam: Normal Color Results - Vital Signs Recent Vital Signs: Last Vital Signs Temp 98.5 F 04/04/18 12:44 Pulse 79 04/04/18 12:44 Resp 18 04/04/18 12:44 BP 105/70 04/04/18 12:44 Pulse Ox 96 04/04/18 12:44 - Labs Result Diagrams: 04/02/18 05:15 04/04/18 04:20 Labs: Laboratory Results - last 24 hr 04/02/18 04/02/18 04/02/18 11:16 16:21 21:33 Sodium Potassium Chloride Carbon Dioxide Anion Gap BUN Creatinine Est GFR ( Amer) Est GFR (Non-Af Amer) POC Glucose (mg/dL) 210 H 97 161 H Random Glucose Calcium Total Bilirubin AST ALT Alkaline Phosphatase Total Protein Albumin Globulin Albumin/Globulin Ratio 04/03/18 04/03/18 04/03/18 05:06 10:49 17:31 Sodium Potassium Chloride Carbon Dioxide Anion Gap BUN Creatinine Est GFR ( Amer) Est GFR (Non-Af Amer) POC Glucose (mg/dL) 136 H 221 H 115 H Random Glucose Calcium Total Bilirubin AST ALT Alkaline Phosphatase Total Protein Albumin Globulin Albumin/Globulin Ratio 04/03/18 04/04/18 04/04/18 22:21 04:20 05:23 Sodium 142 Potassium 4.7 Chloride 110 H Carbon Dioxide 26 Anion Gap 11 BUN 17 Creatinine 1.1 Est GFR ( Amer) > 60 Est GFR (Non-Af Amer) 51 POC Glucose (mg/dL) 141 H 133 H Random Glucose 140 H Calcium 8.9 Total Bilirubin 0.5 AST 30 ALT 57 H D Alkaline Phosphatase 78 Total Protein 6.4 Albumin 3.4 L Globulin 2.9 Albumin/Globulin Ratio 1.2 04/04/18 11:48 Sodium Potassium Chloride Carbon Dioxide Anion Gap BUN Creatinine Est GFR ( Amer) Est GFR (Non-Af Amer) POC Glucose (mg/dL) 248 H Random Glucose Calcium Total Bilirubin AST ALT Alkaline Phosphatase Total Protein Albumin Globulin Albumin/Globulin Ratio Assessment & Plan - Assessment and Plan (Free Text) Assessment: 58 yo female seen and evaluated at bedside for erythema and swelling to both legs L>R Plan: patient seen and evaluated chart, labs and vitals reviewed wound cultures ordered bilateral leg x-rays ordered left leg dressed with DSD continue IV antibiotics podiatry will continue to follow the patient while in house thank you for the consult
--- NOTE | 2018-04-04 22:55 | CP.PCM.PN ---
Subjective - Date & Time of Evaluation Date of Evaluation: 04/02/18 Time of Evaluation: 17:00 - Subjective Subjective: Patient still has low grade fever Noted drop in WBC to normal On IV antibiotics Still with significant redness on the left leg. Objective - Vital Signs/Intake and Output Vital Signs (last 24 hours): Temp Pulse Resp BP Pulse Ox 98.7 F 85 18 140/84 96 04/04/18 21:30 04/04/18 20:49 04/04/18 20:49 04/04/18 20:49 04/04/18 20:49 - Medications Medications: Current Medications Acetaminophen (Tylenol 325mg Tab) 650 mg PO Q6 PRN PRN Reason: Pain, moderate (4-7) Last Admin: 04/01/18 09:39 Dose: 650 mg Acetaminophen (Tylenol 325mg Tab) 650 mg PO Q6 [facility] Last Admin: 04/04/18 21:30 Dose: 650 mg Atorvastatin Calcium (Lipitor) 40 mg PO DAILY [facility] Last Admin: 04/04/18 09:08 Dose: 40 mg Enoxaparin Sodium (Lovenox) 40 mg SC DAILY [facility]; Protocol Last Admin: 04/04/18 09:09 Dose: 40 mg Cefepime HCl 1 gm/ Sodium (Chloride) 100 mls @ 100 mls/hr IVPB Q12 [facility]; Protocol Last Admin: 04/04/18 21:27 Dose: 100 mls/hr Vancomycin HCl 500 mg/ Sodium (Chloride) 100 mls @ 100 mls/hr IVPB Q12H [facility]; Protocol Last Admin: 04/04/18 21:41 Dose: 100 mls/hr Ibuprofen (Motrin Tab) 600 mg PO Q8 [facility] Last Admin: 04/04/18 17:09 Dose: 600 mg Insulin Human Lispro (Humalog) 0 units SC ACHS [facility]; Protocol Last Admin: 04/04/18 21:42 Dose: Not Given Lactic Acid (Lac-Hydrin 12% Cream (140 G)) 1 ea TOP DAILY [facility] Last Admin: 04/04/18 09:09 Dose: Not Given Lisinopril (Zestril) 40 mg PO DAILY [facility] Last Admin: 04/04/18 09:08 Dose: 40 mg Metformin HCl (Glucophage) 1,000 mg PO DAILY [facility] Last Admin: 04/04/18 09:07 Dose: 1,000 mg - Labs Labs: 04/02/18 05:15 04/04/18 04:20 - Head Exam Head Exam: NORMAL INSPECTION - Eye Exam Eye Exam: Normal appearance - ENT Exam ENT Exam: Mucous Membranes Moist - Respiratory Exam Respiratory Exam: Clear to Ausculation Bilateral - Cardiovascular Exam Cardiovascular Exam: REGULAR RHYTHM - GI/Abdominal Exam GI & Abdominal Exam: Normal Bowel Sounds - Neurological Exam Neurological Exam: Awake, Oriented x3 - Skin Skin Exam: Erythema Additional comments: redness on the left left noted ulcers on the anterior aspect of midleg left Assessment and Plan (1) Cellulitis Status: Acute (2) Sepsis Status: Acute (3) Diabetes mellitus type 2 in obese Status: Acute (4) Hyperlipidemia Status: Acute (5) Hypertension Status: Acute (6) Obesity Status: Acute - Assessment and Plan (Free Text) Plan: Cont iv antibiotics check C and S cint wound care cont meds cont insulin
--- NOTE | 2018-04-04 23:00 | CP.PCM.PN ---
Subjective - Date & Time of Evaluation Date of Evaluation: 04/03/18 Time of Evaluation: 11:15 - Subjective Subjective: Patient feels a lot better Noted decrease in leg edema Noted decrease in the area of erythema Has no fever WBC is normal. Objective - Vital Signs/Intake and Output Vital Signs (last 24 hours): Temp Pulse Resp BP Pulse Ox 98.7 F 85 18 140/84 96 04/04/18 21:30 04/04/18 20:49 04/04/18 20:49 04/04/18 20:49 04/04/18 20:49 - Medications Medications: Current Medications Acetaminophen (Tylenol 325mg Tab) 650 mg PO Q6 PRN PRN Reason: Pain, moderate (4-7) Last Admin: 04/01/18 09:39 Dose: 650 mg Acetaminophen (Tylenol 325mg Tab) 650 mg PO Q6 [facility] Last Admin: 04/04/18 21:30 Dose: 650 mg Atorvastatin Calcium (Lipitor) 40 mg PO DAILY [facility] Last Admin: 04/04/18 09:08 Dose: 40 mg Enoxaparin Sodium (Lovenox) 40 mg SC DAILY [facility]; Protocol Last Admin: 04/04/18 09:09 Dose: 40 mg Cefepime HCl 1 gm/ Sodium (Chloride) 100 mls @ 100 mls/hr IVPB Q12 [facility]; Protocol Last Admin: 04/04/18 21:27 Dose: 100 mls/hr Vancomycin HCl 500 mg/ Sodium (Chloride) 100 mls @ 100 mls/hr IVPB Q12H [facility]; Protocol Last Admin: 04/04/18 21:41 Dose: 100 mls/hr Ibuprofen (Motrin Tab) 600 mg PO Q8 [facility] Last Admin: 04/04/18 17:09 Dose: 600 mg Insulin Human Lispro (Humalog) 0 units SC ACHS [facility]; Protocol Last Admin: 04/04/18 21:42 Dose: Not Given Lactic Acid (Lac-Hydrin 12% Cream (140 G)) 1 ea TOP DAILY [facility] Last Admin: 04/04/18 09:09 Dose: Not Given Lisinopril (Zestril) 40 mg PO DAILY [facility] Last Admin: 04/04/18 09:08 Dose: 40 mg Metformin HCl (Glucophage) 1,000 mg PO DAILY [facility] Last Admin: 04/04/18 09:07 Dose: 1,000 mg - Labs Labs: 04/02/18 05:15 04/04/18 04:20 - Head Exam Head Exam: NORMAL INSPECTION - Respiratory Exam Respiratory Exam: Clear to Ausculation Bilateral - Cardiovascular Exam Cardiovascular Exam: REGULAR RHYTHM - GI/Abdominal Exam GI & Abdominal Exam: Soft, Normal Bowel Sounds - Neurological Exam Neurological Exam: Awake, Oriented x3 - Psychiatric Exam Psychiatric exam: Normal Mood Assessment and Plan (1) Cellulitis Status: Acute (2) Sepsis Status: Acute (3) Diabetes mellitus type 2 in obese Status: Acute (4) Hyperlipidemia Status: Acute (5) Hypertension Status: Acute (6) Obesity Status: Acute - Assessment and Plan (Free Text) Plan: Con tmeds Cont IV antibiotics follow up C and S cont wound care
--- NOTE | 2018-04-04 23:02 | CP.PCM.PN ---
Subjective - Date & Time of Evaluation Date of Evaluation: 04/04/18 Time of Evaluation: 11:00 - Subjective Subjective: Patient remains stable Noted significant decrease in the area of redness on the left leg Has no fever WBC is normal. Objective - Vital Signs/Intake and Output Vital Signs (last 24 hours): Temp Pulse Resp BP Pulse Ox 98.7 F 85 18 140/84 96 04/04/18 21:30 04/04/18 20:49 04/04/18 20:49 04/04/18 20:49 04/04/18 20:49 - Medications Medications: Current Medications Acetaminophen (Tylenol 325mg Tab) 650 mg PO Q6 PRN PRN Reason: Pain, moderate (4-7) Last Admin: 04/01/18 09:39 Dose: 650 mg Acetaminophen (Tylenol 325mg Tab) 650 mg PO Q6 [facility] Last Admin: 04/04/18 21:30 Dose: 650 mg Atorvastatin Calcium (Lipitor) 40 mg PO DAILY [facility] Last Admin: 04/04/18 09:08 Dose: 40 mg Enoxaparin Sodium (Lovenox) 40 mg SC DAILY [facility]; Protocol Last Admin: 04/04/18 09:09 Dose: 40 mg Cefepime HCl 1 gm/ Sodium (Chloride) 100 mls @ 100 mls/hr IVPB Q12 [facility]; Protocol Last Admin: 04/04/18 21:27 Dose: 100 mls/hr Vancomycin HCl 500 mg/ Sodium (Chloride) 100 mls @ 100 mls/hr IVPB Q12H [facility]; Protocol Last Admin: 04/04/18 21:41 Dose: 100 mls/hr Ibuprofen (Motrin Tab) 600 mg PO Q8 [facility] Last Admin: 04/04/18 17:09 Dose: 600 mg Insulin Human Lispro (Humalog) 0 units SC ACHS [facility]; Protocol Last Admin: 04/04/18 21:42 Dose: Not Given Lactic Acid (Lac-Hydrin 12% Cream (140 G)) 1 ea TOP DAILY [facility] Last Admin: 04/04/18 09:09 Dose: Not Given Lisinopril (Zestril) 40 mg PO DAILY [facility] Last Admin: 04/04/18 09:08 Dose: 40 mg Metformin HCl (Glucophage) 1,000 mg PO DAILY [facility] Last Admin: 04/04/18 09:07 Dose: 1,000 mg - Labs Labs: 04/02/18 05:15 04/04/18 04:20 - Head Exam Head Exam: NORMAL INSPECTION - Eye Exam Eye Exam: Normal appearance - Respiratory Exam Respiratory Exam: NORMAL BREATHING PATTERN - Cardiovascular Exam Cardiovascular Exam: REGULAR RHYTHM - GI/Abdominal Exam GI & Abdominal Exam: Normal Bowel Sounds Assessment and Plan (1) Cellulitis Status: Acute (2) Sepsis Status: Acute (3) Diabetes mellitus type 2 in obese Status: Acute (4) Hyperlipidemia Status: Acute (5) Hypertension Status: Acute (6) Obesity Status: Acute - Assessment and Plan (Free Text) Plan: Cont meds Con ttx Cont pain med Phys therapy Discussed with Dr Alvarez will do discharge plans.
[2018-04-05] MEDS: Insulin Lispro (humaLOG) 100 Units/ml Inj SC SCH ×2 (06:51→13:30)
--- NOTE | 2018-04-05 08:46 | CP.PCM.PN ---
Subjective - Date & Time of Evaluation Date of Evaluation: 04/05/18 Time of Evaluation: 08:44 - Subjective Subjective: Podiatry progress note for Dr. Esquivel, 58 year old female, with a past medical history of diabetes, HTN and hypercholesterolemia, who who was seen at bedside for red, hot swollen legs for the last week. Patient states she will most like be discharged today. Patient denies any acute overnight events. Denies any other pedal complains. Objective - Vital Signs/Intake and Output Vital Signs (last 24 hours): Temp Pulse Resp BP Pulse Ox 98.7 F 84 19 114/72 93 L 04/05/18 00:32 04/05/18 00:32 04/05/18 00:32 04/05/18 00:32 04/05/18 00:32 - Medications Medications: Current Medications Acetaminophen (Tylenol 325mg Tab) 650 mg PO Q6 PRN PRN Reason: Pain, moderate (4-7) Last Admin: 04/01/18 09:39 Dose: 650 mg Acetaminophen (Tylenol 325mg Tab) 650 mg PO Q6 [facility] Last Admin: 04/05/18 04:51 Dose: 650 mg Atorvastatin Calcium (Lipitor) 40 mg PO DAILY [facility] Last Admin: 04/04/18 09:08 Dose: 40 mg Enoxaparin Sodium (Lovenox) 40 mg SC DAILY [facility]; Protocol Last Admin: 04/04/18 09:09 Dose: 40 mg Cefepime HCl 1 gm/ Sodium (Chloride) 100 mls @ 100 mls/hr IVPB Q12 [facility]; Protocol Last Admin: 04/04/18 21:27 Dose: 100 mls/hr Vancomycin HCl 500 mg/ Sodium (Chloride) 100 mls @ 100 mls/hr IVPB Q12H [facility]; Protocol Last Admin: 04/04/18 21:41 Dose: 100 mls/hr Ibuprofen (Motrin Tab) 600 mg PO Q8 [facility] Last Admin: 04/05/18 00:27 Dose: 600 mg Insulin Human Lispro (Humalog) 0 units SC ACHS [facility]; Protocol Last Admin: 04/05/18 06:51 Dose: 2 units Lactic Acid (Lac-Hydrin 12% Cream (140 G)) 1 ea TOP DAILY [facility] Last Admin: 04/04/18 09:09 Dose: Not Given Lisinopril (Zestril) 40 mg PO DAILY [facility] Last Admin: 04/04/18 09:08 Dose: 40 mg Metformin HCl (Glucophage) 1,000 mg PO DAILY [facility] Last Admin: 04/04/18 09:07 Dose: 1,000 mg - Labs Labs: 04/02/18 05:15 04/04/18 04:20 - Constitutional Appears: Well, Non-toxic - Head Exam Head Exam: ATRAUMATIC - Extremities Exam Additional comments: Bilateral lower extremity exam: vascular: DP 2/4 b/l, PT nonpalpable secondary to +2 pitting edema, CFT <5 secs x 10, TG warm to cool, edema and erythema noted in both legs circumferentially L>R derm: two open lesions noted on the lateral aspect of the left distal leg, scab covering the ulcer, fibrogranular base, no drainage noted, no malodor, no probe to bone or tendon, daisy wound erythema noted. Multiple scabs notedon the right leg, fulled covered no open wounds neuro: protective sensation intact via ipswich /4 ortho: pain upon palpation to both legs L>R - Neurological Exam Neurological Exam: Alert, Awake Assessment and Plan - Assessment and Plan (Free Text) Assessment: 58 yo female seen and evaluated at bedside for erythema and swelling to both legs L>R Plan: patient seen and evaluated chart, labs and vitals reviewed wound cultures ordered; pending bilateral leg x-rays ordered; no osseous abnormality noted left leg dressed with DSD, DEEPTI continue IV antibiotics Plan: stable for discharge, patient will follow up with Dr. Esquivel within a week of discharge. Podiatry will continue to follow the patient while in house
[2018-04-05] MEDS: Ammonium Lactate 12% Cream (140 g) TOP SCH (08:50)
[2018-04-05] MEDS: Enoxaparin 40 mg Syringe SC SCH (08:52)
[2018-04-05] MEDS: Cefepime 1 GM in Sodium Chloride 0.9% 100 ML IVPB SCH (09:01)
[2018-04-05 09:07] VITALS: BP 148/85; PULSE 85; TEMP 98.1
[2018-04-05 09:22] VITALS: RESP 20; O2SAT 97
--- NOTE | 2018-04-05 12:47 | RAD ---
Date of service: 04/05/2018 PROCEDURE: Radiographs of the bilateral Tibiae and Fibulae. HISTORY: rule out osseous abnormalities COMPARISON: None available. TECHNIQUE: Frontal and lateral views obtained. FINDINGS: BONES: RIGHT TIBIA: No fracture or destructive lesion. LEFT TIBIA: No fracture or destructive lesion. JOINT SPACES: RIGHT TIBIA: Normal. LEFT TIBIA: Normal. SOFT TISSUES: RIGHT TIBIA: Diffuse lower extremity edema. LEFT TIBIA: Symmetrical edema. OTHER FINDINGS: None. IMPRESSION: No significant osseous or articular abnormalities. Bilateral lower extremity edema
--- NOTE | 2018-04-05 16:41 | CP.PCM.DIS ---
Provider - Provider Date of Admission: 03/31/18 18:44 Attending physician: Osman Aburto MD Primary care physician: Dr Randall Consults: ID: Dr Alvarez Time Spent in preparation of Discharge (in minutes): 35 Diagnosis - Discharge Diagnosis (1) Bilateral lower extremity edema Status: Acute (2) Cellulitis Status: Acute Hospital Course - Lab Results Lab Results: Micro Results 04/04/18 20:41 Leg - Left Gram Stain - Final 03/31/18 19:50 Blood-Venous Blood Culture - Preliminary NO GROWTH AFTER 4 DAYS 03/31/18 19:10 Blood-Venous Blood Culture - Preliminary NO GROWTH AFTER 4 DAYS Most Recent Lab Values WBC 7.5 K/uL (4.8-10.8) 04/02/18 05:15 RBC 3.76 Mil/uL (3.80-5.20) L 04/02/18 05:15 Hgb 11.0 g/dL (12.0-16.0) L 04/02/18 05:15 Hct 33.9 % (34.0-47.0) L 04/02/18 05:15 MCV 90.2 fl (81.0-99.0) 04/02/18 05:15 MCH 29.3 pg (27.0-31.0) 04/02/18 05:15 MCHC 32.5 g/dL (33.0-37.0) L 04/02/18 05:15 RDW 14.1 % (11.5-14.5) 04/02/18 05:15 Plt Count 145 K/uL (130-400) 04/02/18 05:15 MPV 8.5 fl (7.2-11.7) 03/31/18 19:10 Neut % (Auto) 87.7 % (50.0-75.0) H 03/31/18 19:10 Lymph % (Auto) 6.8 % (20.0-40.0) L 03/31/18 19:10 [place] % (Auto) 4.6 % (0.0-10.0) 03/31/18 19:10 Eos % (Auto) 0.3 % (0.0-4.0) 03/31/18 19:10 Baso % (Auto) 0.6 % (0.0-2.0) 03/31/18 19:10 Neut # (Auto) 12.7 K/uL (1.8-7.0) H 03/31/18 19:10 Lymph # (Auto) 1.0 K/uL (1.0-4.3) 03/31/18 19:10 [place] # (Auto) 0.7 K/uL (0.0-0.8) 03/31/18 19:10 Eos # (Auto) 0.0 K/uL (0.0-0.7) 03/31/18 19:10 Baso # (Auto) 0.1 K/uL (0.0-0.2) 03/31/18 19:10 Neutrophils % (Manual) 80 % (42-75) H 03/31/18 19:10 Band Neutrophils % 4 % (0-2) H 03/31/18 19:10 Lymphocytes % (Manual) 9 % (20-50) L 03/31/18 19:10 Reactive Lymphs % 1 % (0-0) H 03/31/18 19:10 Monocytes % (Manual) 5 % (0-10) 03/31/18 19:10 Basophils % (Manual) 1 % (0-2) 03/31/18 19:10 Toxic Granulation Present 03/31/18 19:10 Platelet Estimate Normal (NORMAL) 03/31/18 19:10 Polychromasia Slight 03/31/18 19:10 Hypochromasia (manual) Slight 03/31/18 19:10 ESR 49 mm/hr (0-30) H 04/01/18 04:20 pO2 55 mm/Hg (30-55) 03/31/18 22:00 VBG pH 7.43 (7.32-7.43) 03/31/18 22:00 VBG pCO2 36 mmHg (40-60) L 03/31/18 22:00 VBG HCO3 24.6 mmol/L 03/31/18 22:00 VBG Total CO2 25.0 mmol/L (22-28) 03/31/18 22:00 VBG O2 Sat (Calc) 93.7 % (40-65) H 03/31/18 22:00 VBG Base Excess -0.1 mmol/L (0.0-2.0) L 03/31/18 22:00 VBG Potassium 4.0 mmol/L (3.6-5.2) 03/31/18 22:00 Sodium 135.0 mmol/L (132-148) 03/31/18 22:00 Chloride 105.0 mmol/L (98-107) 03/31/18 22:00 Glucose 242 mg/dL (65-105) H 03/31/18 22:00 Lactate 1.6 mmol/L (0.7-2.1) 03/31/18 22:00 FiO2 21.0 % 03/31/18 22:00 Sodium 142 mmol/l (132-148) 04/04/18 04:20 Potassium 4.7 MMOL/L (3.6-5.0) 04/04/18 04:20 Chloride 110 mmol/L (98-107) H 04/04/18 04:20 Carbon Dioxide 26 mmol/L (22-30) 04/04/18 04:20 Anion Gap 11 (10-20) 04/04/18 04:20 BUN 17 mg/dl (7-17) 04/04/18 04:20 Creatinine 1.1 mg/dl (0.7-1.2) 04/04/18 04:20 Est GFR ( Amer) > 60 04/04/18 04:20 Est GFR (Non-Af Amer) 51 04/04/18 04:20 POC Glucose (mg/dL) 144 mg/dL (65-110) H 04/05/18 12:20 Random Glucose 140 mg/dL (65-105) H 04/04/18 04:20 Hemoglobin A1c 8.3 % (4.2-6.5) H 04/01/18 11:38 Calcium 8.9 mg/dL (8.4-10.2) 04/04/18 04:20 Total Bilirubin 0.5 mg/dl (0.2-1.3) 04/04/18 04:20 AST 30 U/L (14-36) 04/04/18 04:20 ALT 57 U/L (9-52) H D 04/04/18 04:20 Alkaline Phosphatase 78 U/L (38-126) 04/04/18 04:20 Total Protein 6.4 G/DL (6.3-8.2) 04/04/18 04:20 Albumin 3.4 g/dL (3.5-5.0) L 04/04/18 04:20 Globulin 2.9 gm/dL (2.2-3.9) 04/04/18 04:20 Albumin/Globulin Ratio 1.2 (1.0-2.1) 04/04/18 04:20 Venous Blood Potassium 4.0 mmol/L (3.6-5.2) 03/31/18 22:00 Urine Color Yellow (YELLOW) 04/01/18 05:42 Urine Clarity Slighty-cloudy (Clear) 04/01/18 05:42 Urine pH 5.0 (5.0-8.0) 04/01/18 05:42 Ur Specific [place] 1.024 (1.003-1.030) 04/01/18 05:42 Urine Protein Negative mg/dL (NEGATIVE) 04/01/18 05:42 Urine Glucose (UA) Neg mg/dL (Normal) 04/01/18 05:42 Urine Ketones Trace mg/dL (NEGATIVE) 04/01/18 05:42 Urine Blood Moderate (NEGATIVE) 04/01/18 05:42 Urine Nitrate Negative (NEGATIVE) 04/01/18 05:42 Urine Bilirubin Negative (NEGATIVE) 04/01/18 05:42 Urine Urobilinogen 0.2-1.0 mg/dL (0.2-1.0) 04/01/18 05:42 Ur Leukocyte Esterase Neg [place]/uL (Negative) 04/01/18 05:42 Urine RBC (Auto) 1 /hpf (0-3) 04/01/18 05:42 Urine Microscopic WBC 1 /hpf (0-5) 04/01/18 05:42 Ur Squamous Epith Cells 1 /hpf (0-5) 04/01/18 05:42 Urine Bacteria Rare (<OCC) 04/01/18 05:42 Vancomycin Trough 7.3 ug/mL (5.0-10.0) 04/05/18 09:39 - Hospital Course Hospital Course: 58 y/o F patient with PMH of HTN, DM and HLD was admitted for evaluation and management of b/l lower leg cellulitis that failed oupatient therapy. Pt received IV Vancomycin during hospitalization. Blood culture x2 were negative for growth. Wound culture was also negative. ID and podiatry speciaist evaluated patient. Pt was seen and examined today by bedside with Dr Sweet. Pt afebrile, stable, tolerating PO with No acute events overnight. As per ID specialits, pt needs PO clindamycin as outpatient for 10 more days. - Date & Time of H&P Date of H&P: 04/01/18 Time of H&P: 12:01 Discharge Exam - Additional Findings Additional findings: - Head Exam Head Exam: NORMAL INSPECTION - Eye Exam Eye Exam: Normal appearance - ENT Exam ENT Exam: Mucous Membranes Moist - Respiratory Exam Respiratory Exam: Clear to Ausculation Bilateral - Cardiovascular Exam Cardiovascular Exam: REGULAR RHYTHM - GI/Abdominal Exam GI & Abdominal Exam: Normal Bowel Sounds - Neurological Exam Neurological Exam: Awake, Oriented x3 - Skin Skin Exam: Erythema Additional comments: erythema on L lower leg decreased from admission examination. Ulcers on the anterior aspect of left pre-tibial area, no suppuration or bleeding noticed. Discharge Plan - Discharge Medications Prescriptions: Clindamycin [Cleocin] 300 mg PO Q12 #20 cap Saccharomyces Boulardi [Florastor] 250 mg PO BID #20 cap - Follow Up Plan Condition: FAIR Disposition: HOME/ ROUTINE Instructions: Diabetes Type 2 (DC), Sepsis, Adult (DC), Cellulitis (Skin Infection), Adult (DC) Additional Instructions: follow up with and in 1 week Referrals: Marv Esquivel DPM [[facility]] - Osman Aburto MD [Family Provider] -
== END 2018-04-05 13:30 | disposition home or self-care (01) | DRG 720 ==
LOC: H.ER 18:09 → H.ERHOLD 18:44 → H.TEL 23:16
PROVIDERS: ADMIT Family Medicine; ATTEND Family Medicine
PROC: 3E0234Z Introduction of Serum, Toxoid and Vaccine into Muscle, Percutaneous Approach (ICD-10-PCS; principal; 2018-04-01)
DX: A41.9 Sepsis, unspecified organism (principal); Z68.44 Body mass index [BMI] 60.0-69.9, adult; I10 Essential (primary) hypertension; L03.115 Cellulitis of right lower limb; L03.116 Cellulitis of left lower limb; E66.01 Morbid (severe) obesity due to excess calories; Z71.3 Dietary counseling and surveillance; E11.9 Type 2 diabetes mellitus without complications; E78.00 Pure hypercholesterolemia, unspecified; E78.5 Hyperlipidemia, unspecified; Z23 Encounter for immunization

== ENCOUNTER 2018-04-07 15:58 | Inpatient (IN) | payer OTHER ==
--- NOTE | 2018-04-07 17:01 | ED PDOC ---
Lower Extremity Pain/Injury Time Seen by Provider: 04/07/18 16:26 Chief Complaint (Nursing): Lower Extremity Problem/Injury Chief Complaint (Provider): Lower Extremity Problem/Injury History Per: Patient History/Exam Limitations: no limitations Current Symptoms Are (Timing): Still Present Additional Complaint(s): 58 y/o female with history of HTN HLD and diabetes presents to the ED complainin g of chills and discharge from wounds on her lower left extremity. Patient was recently admitted to the hospital for left leg cellulitis and was discharged x2 days ago. Additionally for the past x3 days patient has also had intermittent shortness of breath on exertion with associated mild cough and occasional phlegm production. Patient denies hemoptysis or chest pain. Patient reports she is compliant with her medication. Past Medical History Reviewed: Historical Data, Nursing Documentation, Vital Signs Vital Signs: Last Vital Signs Temp 98.0 F 04/07/18 16:03 Pulse 92 H 04/07/18 16:03 Resp 16 04/07/18 16:03 BP 155/84 H 04/07/18 16:03 Pulse Ox 98 04/07/18 16:03 - Medical History PMH: Arthritis, Bronchitis, Diabetes, HTN, Hypercholesterolemia, Hyperlipidemia Denies: HIV, Chronic Kidney Disease - Family History Family History: States: Unknown Family Hx - Home Medications Home Medications: Ambulatory Orders Medication Instructions Recorded RX: Liraglutide [Victoza 2-Paco] 1.2 mg SQ DAILY 03/31/18 RX: MetFORMIN [glucoPHAGE] 1,000 mg PO DAILY 03/31/18 RX: Clindamycin [Cleocin] 300 mg PO Q12 #20 cap 04/05/18 Atorvastatin [Lipitor] 20 mg PO DAILY 04/07/18 Furosemide [Lasix] 20 mg PO DAILY 04/07/18 Lisinopril/Hydrochlorothiazide 1 tab PO DAILY 04/07/18 [Lisinopril-Hctz 20-12.5 mg Tab] RX: Potassium Chloride [Klor-Con 10 meq PO DAILY 04/07/18 10] - Allergies Allergies/Adverse Reactions: Allergies Allergy/AdvReac Type Severity Reaction Status Date / Time No Known Allergies Allergy Verified 04/07/18 16:04 Review of Systems ROS Statement: Except As Marked, All Systems Reviewed And Found Negative (as per HPI otherwise negative) Constitutional: Positive for: Chills Cardiovascular: Negative for: Chest Pain Respiratory: Positive for: Cough, SOB with Exertion, Sputum. Negative for: Hemoptysis Musculoskeletal: Positive for: Leg Pain Physical Exam - Reviewed Nursing Documentation Reviewed: Yes Vital Signs Reviewed: Yes - Physical Exam Appears: Positive for: No Acute Distress (Tired appearing) Head Exam: Positive for: ATRAUMATIC, NORMOCEPHALIC Skin: Positive for: Warm, Dry Eye Exam: Positive for: EOMI, PERRL ENT: Positive for: Pharynx Is (clear), Other (tacky mucus membranes). Negative for: Pharyngeal Erythema, Tonsillar Exudate, Tonsillar Swelling Cardiovascular/Chest: Positive for: Regular Rate, Rhythm. Negative for: Murmur Respiratory: Positive for: Normal Breath Sounds (CTA bilaterally). Negative for: Accessory Muscle Use, Respiratory Distress Gastrointestinal/Abdominal: Positive for: Soft. Negative for: Tenderness Back: Positive for: Normal Inspection. Negative for: Muscle Spasm Extremity: Positive for: Pedal Edema, Swelling (bilateral lower extremity), Other (Left lower exremity: blanching erythema to distal lower legs, wounds with both yellow eschar but also open wet erythema and tenderness to palpation; Right lower extremity: luis dark erythema, yellow eschar, nontender) Lymphatic: Negative for: Adenopathy Neurologic/Psych: Positive for: Alert. Negative for: Motor/Sensory Deficits - Laboratory Results Result Diagrams: 04/11/18 06:10 04/11/18 06:10 - ECG ECG: Positive for: Interpreted By Dc ECG Rhythm: Positive for: Normal QRS, Normal ST Segment, Sinus Rhythm O2 Sat by Pulse Oximetry: 98 (RA) Pulse Ox Interpretation: Normal Medical Decision Making Medical Decision Making: Time: 16:40 Initial Impression: left leg cellulitis and shortness of breath Differential included but not limited to sepsis, recurrent cellulitis, pneumonia, PE, CHF, fluid retention Initial Plan: Type and screen * EKG * BNP * CMP * CRP * Magnesium * Phosphorous * Troponin I * CBC w/ diff * ESR * PTT * Prothrombin time * CXR * Blood/Urine Culture * Wound culture * Influenza A B * UA 1739 Chest X-Ray FINDINGS: LUNGS: No active pulmonary disease. PLEURA: No significant pleural effusion identified, no pneumothorax apparent. CARDIOVASCULAR: No atherosclerotic calcification present No radiographic findings to suggest acute or significant cardiovascular disease. OSSEOUS STRUCTURES: No significant abnormalities. VISUALIZED UPPER ABDOMEN: Normal. OTHER FINDINGS: None. IMPRESSION: No active disease. No significant interval change compared to the prior examination(s). Labs demonstrate increasing WBC and ESR. Pt needs hospitalization for cellulitis failing outpatient treatment. DW Dr Sweet for Dr Lamonte HURT. Orders placed as per discussion Scribe Attestation: Documented by Fausto Espinoza acting as a scribe for Sabra Atkins MD. Provider Scribe Attestation: All medical record entries made by the Scribe were at my direction and personally dictated by me. I have reviewed the chart and agree that the record accurately reflects my personal performance of the history, physical exam, medical decision making, and the department course for this patient. I have also personally directed, reviewed, and agree with the discharge instructions and disposition. Disposition - Clinical Impression Clinical Impression: Cellulitis Counseled Patient/Family Regarding: Studies Performed, Diagnosis - Disposition Disposition Time: 21:00 Condition: FAIR - Pt Status Changed To: Hospital Disposition Of: Inpatient - Admit Certification Admit to Inpatient:: After my assessment, the patient will require hospitalization for at least two midnights. This is because of the severity of symptoms shown, intensity of services needed, and/or the medical risk in this patient being treated as an outpatient. - POA Present On Arrival: None
--- NOTE | 2018-04-07 17:43 | RAD ---
Date of service: 04/07/2018 HISTORY: Shortness of breath. COMPARISON: 03/31/2018 FINDINGS: LUNGS: No active pulmonary disease. PLEURA: No significant pleural effusion identified, no pneumothorax apparent. CARDIOVASCULAR: No atherosclerotic calcification present No radiographic findings to suggest acute or significant cardiovascular disease. OSSEOUS STRUCTURES: No significant abnormalities. VISUALIZED UPPER ABDOMEN: Normal. OTHER FINDINGS: None. IMPRESSION: No active disease. No significant interval change compared to the prior examination(s).
[2018-04-07 18:42] LABS: BASO # 0.1 K/uL (0.0-0.2); BASO % 0.8 % (0.0-2.0); EOS # 0.2 K/uL (0.0-0.7); EOS % 1.8 % (0.0-4.0); HEMOGLOBIN 12.1 g/dL (12.0-16.0); LYMPH # 2.1 K/uL (1.0-4.3); LYMPH % 22.5 % (20.0-40.0); MEAN CORPUSCULAR HEMOGLOBIN 29.1 pg (27.0-31.0); MEAN CORPUSCULAR HGB CONC 32.7 g/dL (33.0-37.0); MEAN PLATELET VOLUME 8.2 fl (7.2-11.7); MONO # 0.6 K/uL (0.0-0.8); MONO % 6.4 % (0.0-10.0); NEUT # 6.5 K/uL (1.8-7.0); NEUT % 68.5 % (50.0-75.0); RBC 4.16 Mil/uL (3.80-5.20); RED CELL DISTRIBUTION WIDTH 13.8 % (11.5-14.5); WHITE BLOOD COUNT 9.5 K/uL (4.8-10.8)
[2018-04-07 18:45] LABS: INR 1.2; PROTHROMBIN TIME 13.2 Seconds (9.8-13.1)
[2018-04-07 19:22] LABS: ALB/GLOB RATIO 1.2 (1.0-2.1); ALBUMIN 4.1 g/dL (3.5-5.0); ALT/SGPT 104 U/L (9-52); AST/SGOT 61 U/L (14-36); BLOOD UREA NITROGEN 19 mg/dl (7-17); CALCIUM 9.3 mg/dL (8.4-10.2); GFR NON-AFRICAN AMERICAN > 60
[2018-04-07 19:27] LABS: B-TYPE NATRIURETIC PEPTIDE 118 pg/ml (0-900)
[2018-04-07 19:35] LABS: SQUAMOUS EPITHIAL 6 /hpf (0-5); URINE BILIRUBIN NEGATIVE (NEGATIVE); URINE BLOOD NEGATIVE (NEGATIVE); URINE CLARITY SLIGHTY-CLOUDY (Clear); URINE COLOR STRAW (YELLOW); URINE GLUCOSE (UA) NEG (Normal); URINE LEUKOCYTE ESTERASE NEG Leu/uL (Negative); URINE PROTEIN NEGATIVE (NEGATIVE); URINE UROBILINOGEN 0.2-1.0 mg/dL (0.2-1.0)
[2018-04-07 19:36] LABS: URINE BACTERIA FEW (<OCC)
[2018-04-07] MEDS: Sodium Chloride 0.9% 1,000 ML IV SCH (23:48)
[2018-04-08 06:44] LABS: HEMOGLOBIN 10.8 g/dL (12.0-16.0); MEAN CELL VOLUME 90.6 fl (81.0-99.0); MEAN CORPUSCULAR HEMOGLOBIN 29.6 pg (27.0-31.0); MEAN CORPUSCULAR HGB CONC 32.7 g/dL (33.0-37.0); RBC 3.63 Mil/uL (3.80-5.20); RED CELL DISTRIBUTION WIDTH 13.9 % (11.5-14.5); WHITE BLOOD COUNT 7.6 K/uL (4.8-10.8)
[2018-04-08 07:09] LABS: BLOOD UREA NITROGEN 17 mg/dl (7-17); GFR NON-AFRICAN AMERICAN > 60
[2018-04-08 07:10] LABS: ALB/GLOB RATIO 1.1 (1.0-2.1); ALBUMIN 3.4 g/dL (3.5-5.0); ALT/SGPT 97 U/L (9-52); AST/SGOT 62 U/L (14-36); CALCIUM 8.9 mg/dL (8.4-10.2)
--- NOTE | 2018-04-08 08:50 | CARD ---
APPROVED REPORT Date of service: 04/07/2018 EKG Measurement Heart [id number] <Conclusion> Normal sinus rhythm Normal ECG
[2018-04-08] MEDS ORDERED: Patient's Own Med (Lisinopril/Hydrochlorothiazide [Lisinopril-Hctz 20-12.5 Mg Tab] 1 TAB) PO SCH (09:00)
--- NOTE | 2018-04-08 10:27 | CP.PCM.HP ---
History of Present Illness - History of Present Illness History of Present Illness: 58 y/o F patient with PMH of HTN, DM and HLD recently admitted for evaluation and management of b/l lower leg cellulitis and discharged to home 2 days ago with treatment present to the ED complaining of chills and discharge from wounds on her lower left extremity. Additionally for the past x3 days patient has also had intermittent shortness of breath on exertion with associated mild cough and occasional phlegm production. Pt complains of associated subjective fever and chills. No ill contacts. No recent travels. Pt denies trauma, chest pain, abdominal pain, nausea, vomiting or diarrhea. She endorses compliance with her medication. She was discharged on PO clindamycin x 10 days. PMD: Dr Randall PMH: DM, HTN and HLD PSH: denied Allergies: NKDA Social HX: Denies smoking, EtOH use and illicit drug use. Present on Admission - Present on Admission Any Indicators Present on Admission: No Review of Systems - Review of Systems All systems: reviewed and no additional remarkable complaints except (HPI) Past Patient History - Past Medical History & Family History Past Medical History?: Yes - Past Social History Smoking Status: Never Smoked - CARDIAC Hx Hypercholesterolemia: Yes Hx Hypertension: Yes - PULMONARY Hx Bronchitis: Yes - NEUROLOGICAL Hx Neurological Disorder: No - HEENT Hx HEENT Problems: No - RENAL Hx Chronic Kidney Disease: No - ENDOCRINE/METABOLIC Hx Endocrine Disorders: Yes Hx Diabetes Mellitus Type 2: Yes - HEMATOLOGICAL/ONCOLOGICAL Hx Human Immunodeficiency Virus (HIV): No - INTEGUMENTARY Hx Dermatological Problems: No - MUSCULOSKELETAL/RHEUMATOLOGICAL Hx Arthritis: Yes - GASTROINTESTINAL Hx Gastrointestinal Disorders: No - GENITOURINARY/GYNECOLOGICAL Hx Genitourinary Disorders: No - PSYCHIATRIC Hx Psychophysiologic Disorder: No Hx Substance Use: No - SURGICAL HISTORY Hx Surgeries: No - ANESTHESIA Hx Anesthesia: No Hx Anesthesia Reactions: No Meds Allergies/Adverse Reactions: Allergies Allergy/AdvReac Type Severity Reaction Status Date / Time No Known Allergies Allergy Verified 04/07/18 16:04 Physical Exam - Constitutional Appears: No Acute Distress Additional comments: Morbid obese - Respiratory Exam Respiratory Exam: Decreased Breath Sounds, Wheezes (diffuse) - Cardiovascular Exam Cardiovascular Exam: REGULAR RHYTHM, +S1, +S2 - GI/Abdominal Exam GI & Abdominal Exam: Normal Bowel Sounds. absent: Distended, Tenderness - Extremities Exam Extremities exam: Positive for: pedal edema Additional comments: b/l lower extremity edema and erythema with 3-4 cm superficial ulcer in R leg, mild crusting, no discharge appreciated - Neurological Exam Neurological exam: Alert, Oriented x3 - Skin Skin Exam: Erythema (lower legs b/l), Warm Results - Vital Signs Recent Vital Signs: Last Vital Signs Temp 98.8 F 04/08/18 08:28 Pulse 78 04/08/18 09:36 Resp 19 04/08/18 08:28 BP 137/75 04/08/18 09:36 Pulse Ox 95 04/08/18 08:28 - Labs Result Diagrams: 04/08/18 06:12 04/08/18 06:12 Labs: Laboratory Results - last 24 hr 04/07/18 04/07/18 04/07/18 18:00 18:25 18:25 WBC 9.5 RBC 4.16 Hgb 12.1 Hct 37.0 MCV 89.0 MCH 29.1 MCHC 32.7 L RDW 13.8 Plt Count 246 D MPV 8.2 Neut % (Auto) 68.5 Lymph % (Auto) 22.5 [place] % (Auto) 6.4 Eos % (Auto) 1.8 Baso % (Auto) 0.8 Neut # (Auto) 6.5 Lymph # (Auto) 2.1 [place] # (Auto) 0.6 Eos # (Auto) 0.2 Baso # (Auto) 0.1 ESR 103 H PT INR APTT Sodium 141 Potassium 3.7 Chloride 106 Carbon Dioxide 25 Anion Gap 14 BUN 19 H Creatinine 0.8 Est GFR ( Amer) > 60 Est GFR (Non-Af Amer) > 60 Random Glucose 171 H Lactic Acid Calcium 9.3 Phosphorus 3.5 Magnesium 1.8 Total Bilirubin 0.4 AST 61 H D ALT 104 H D Alkaline Phosphatase 102 Troponin I < 0.0120 NT-Pro-B Natriuret Pep 118 Total Protein 7.5 Albumin 4.1 Globulin 3.4 Albumin/Globulin Ratio 1.2 Urine Color Urine Clarity Urine pH Ur Specific [place] Urine Protein Urine Glucose (UA) Urine Ketones Urine Blood Urine Nitrate Urine Bilirubin Urine Urobilinogen Ur Leukocyte Esterase Urine RBC (Auto) Urine Microscopic WBC Ur Squamous Epith Cells Urine Bacteria Influenza Typ A,B (EIA) Negative for flu a/b Blood Type Antibody Screen BBK History Checked 04/07/18 04/07/1818 18:25 18:25 18:25 WBC RBC Hgb Hct MCV MCH MCHC RDW Plt Count MPV Neut % (Auto) Lymph % (Auto) [place] % (Auto) Eos % (Auto) Baso % (Auto) Neut # (Auto) Lymph # (Auto) [place] # (Auto) Eos # (Auto) Baso # (Auto) ESR PT 13.2 H INR 1.2 APTT 30.0 Sodium Potassium Chloride Carbon Dioxide Anion Gap BUN Creatinine Est GFR ( Amer) Est GFR (Non-Af Amer) Random Glucose Lactic Acid Calcium Phosphorus Magnesium Total Bilirubin AST ALT Alkaline Phosphatase Troponin I NT-Pro-B Natriuret Pep Total Protein Albumin Globulin Albumin/Globulin Ratio Urine Color Straw Urine Clarity Slighty-cloudy Urine pH 6.0 Ur Specific [place] 1.010 Urine Protein Negative Urine Glucose (UA) Neg Urine Ketones Negative Urine Blood Negative Urine Nitrate Negative Urine Bilirubin Negative Urine Urobilinogen 0.2-1.0 Ur Leukocyte Esterase Neg Urine RBC (Auto) 1 Urine Microscopic WBC 2 Ur Squamous Epith Cells 6 H Urine Bacteria Few H Influenza Typ A,B (EIA) Blood Type A POSITIVE Antibody Screen Negative BBK History Checked No verified bt 04/08/18 04/08/18 04/08/18 06:12 06:12 06:12 WBC 7.6 RBC 3.63 L Hgb 10.8 L Hct 32.9 L MCV 90.6 MCH 29.6 MCHC 32.7 L RDW 13.9 Plt Count 232 MPV Neut % (Auto) Lymph % (Auto) [place] % (Auto) Eos % (Auto) Baso % (Auto) Neut # (Auto) Lymph # (Auto) [place] # (Auto) Eos # (Auto) Baso # (Auto) ESR PT INR APTT Sodium 141 Potassium 3.9 Chloride 108 H Carbon Dioxide 28 Anion Gap 9 L BUN 17 Creatinine 0.9 Est GFR ( Amer) > 60 Est GFR (Non-Af Amer) > 60 Random Glucose 150 H Lactic Acid 0.6 L Calcium 8.9 Phosphorus Magnesium Total Bilirubin 0.4 AST 62 H ALT 97 H Alkaline Phosphatase 81 Troponin I NT-Pro-B Natriuret Pep Total Protein 6.4 Albumin 3.4 L Globulin 3.0 Albumin/Globulin Ratio 1.1 Urine Color Urine Clarity Urine pH Ur Specific [place] Urine Protein Urine Glucose (UA) Urine Ketones Urine Blood Urine Nitrate Urine Bilirubin Urine Urobilinogen Ur Leukocyte Esterase Urine RBC (Auto) Urine Microscopic WBC Ur Squamous Epith Cells Urine Bacteria Influenza Typ A,B (EIA) Blood Type Antibody Screen BBK History Checked Assessment & Plan - Assessment and Plan (Free Text) Assessment: 58 y/o F patient with PMH of HTN, DM, HLD and Morbid obesity was admitted for evaluation and management of b/l lower leg cellulitis. Plan: - Afebile, no leukocytosis - VS stable - IV Meropenen and Vancomycin - Home meds resumed - ID consult, Dr Alvarez - Podiatry consulted, input appreciated - f/u labs and cx in am - continue management as ordered. Case seen and examined with Dr Garrisonuez
[2018-04-08] MEDS ORDERED: Albuterol-Ipratrop 3 mg / 0.5 (3 ml) UD INH STA (11:54)
[2018-04-08 12:14] LABS: HEPATITIS B SURFACE AG Negative (NEGATIVE)
[2018-04-08 12:19] LABS: HEPATITIS A IGM NEGATIVE (NEGATIVE); HEPATITIS B CORE AB NEGATIVE (NEGATIVE)
[2018-04-08 12:52] LABS: HEPATITIS C ANTIBODY NEGATIVE (NEGATIVE)
[2018-04-08] MEDS: Sodium Chloride 0.9% 1,000 ML IV SCH ×2 (13:35→23:44)
[2018-04-08] MEDS ORDERED: Albuterol-Ipratrop 3 mg / 0.5 (3 ml) UD ONE (13:39)
--- NOTE | 2018-04-08 14:19 | CP.PCM.CON ---
History of Present Illness - History of Present Illness History of Present Illness: Podiatry consult note for Dr. Esquivel, 58 year old female, with a past medical history of diabetes, HTN and hypercholesterolemia, who who was seen at bedside in the ED for red, hot swollen legs for the last week. Patient has been on antibiotics previously for the same with no improvements. She denies any cough or other medical complaints. Patient was here a week ago and was discharged. She oticed chills and serous drainage from her wounds along with SOB and decided to come to the ED. 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 Denies seeing any purulent drainage from the leg. Denies keping the wound covered. Admits to chills and fever. PMD: None provided. Past Patient History - Past Medical History & Family History Past Medical History?: Yes - Past Social History Smoking Status: Never Smoked - CARDIAC Hx Hypercholesterolemia: Yes Hx Hypertension: Yes - PULMONARY Hx Bronchitis: Yes - NEUROLOGICAL Hx Neurological Disorder: No - HEENT Hx HEENT Problems: No - RENAL Hx Chronic Kidney Disease: No - ENDOCRINE/METABOLIC Hx Endocrine Disorders: Yes Hx Diabetes Mellitus Type 2: Yes - HEMATOLOGICAL/ONCOLOGICAL Hx Human Immunodeficiency Virus (HIV): No - INTEGUMENTARY Hx Dermatological Problems: No - MUSCULOSKELETAL/RHEUMATOLOGICAL Hx Arthritis: Yes - GASTROINTESTINAL Hx Gastrointestinal Disorders: No - GENITOURINARY/GYNECOLOGICAL Hx Genitourinary Disorders: No - PSYCHIATRIC Hx Psychophysiologic Disorder: No Hx Substance Use: No - SURGICAL HISTORY Hx Surgeries: No - ANESTHESIA Hx Anesthesia: No Hx Anesthesia Reactions: No Meds Allergies/Adverse Reactions: Allergies Allergy/AdvReac Type Severity Reaction Status Date / Time No Known Allergies Allergy Verified 04/07/18 16:04 - Medications Medications: Current Medications Acetaminophen (Tylenol 325mg Tab) 650 mg PO Q6 PRN PRN Reason: Pain, moderate (4-7) Last Admin: 04/08/18 01:31 Dose: 650 mg Acetaminophen (Tylenol 325mg Tab) 650 mg PO Q6 PRN PRN Reason: Fever >100.4 F Atorvastatin Calcium (Lipitor) 20 mg PO DAILY [facility] Last Admin: 04/08/18 09:35 Dose: 20 mg Furosemide (Lasix) 20 mg PO DAILY [facility] Last Admin: 04/08/18 09:35 Dose: 20 mg Home Med (Liraglutide [Victoza 2-Paco]) 1.2 mg SQ DAILY [facility] Hydrochlorothiazide (Microzide) 12.5 mg PO DAILY [facility] Last Admin: 04/08/18 09:35 Dose: 12.5 mg Sodium Chloride (Sodium Chloride 0.9%) 1,000 mls @ 80 mls/hr IV .[id number] [facility] Last Admin: 04/08/18 13:35 Dose: 80 mls/hr Vancomycin HCl 1 gm/ Sodium (Chloride) 250 mls @ 166.667 mls/hr IVPB Q12 [facility]; Protocol Last Admin: 04/08/18 09:36 Dose: 166.667 mls/hr Meropenem 1 gm/ Sodium (Chloride) 100 mls @ 100 mls/hr IVPB Q12 [facility]; Protocol Ketorolac Tromethamine (Toradol) 30 mg IVP Q6 PRN PRN Reason: Pain, severe (8-10) Last Admin: 04/07/18 23:49 Dose: 30 mg Lisinopril (Zestril) 20 mg PO DAILY [facility] Last Admin: 04/08/18 09:36 Dose: 20 mg Metformin HCl (Glucophage) 1,000 mg PO DAILY [facility] Last Admin: 04/08/18 09:35 Dose: 1,000 mg Physical Exam - Constitutional Appears: Well, Non-toxic - Extremities Exam Additional comments: Bilateral lower extremity exam: vascular: DP 2/4 b/l, PT nonpalpable secondary to +2 pitting edema, CFT <5 secs x 10, TG warm to cool, edema and erythema noted in both legs circumferentially L>R derm: two open lesions noted on the lateral aspect of the left distal leg, scab covering the ulcer, granular base, no drainage noted, no malodor, no probe to bone or tendon, daisy wound erythema noted. Multiple scabs noted on the right leg, fulled covered no open wounds neuro: protective sensation intact via ipswich 08/25 ortho: pain upon palpation to both legs L>R Results - Vital Signs Recent Vital Signs: Last Vital Signs Temp 98.8 F 04/08/18 08:28 Pulse 78 04/08/18 09:36 Resp 18 04/08/18 13:42 BP 137/75 04/08/18 09:36 Pulse Ox 95 04/08/18 08:28 - Labs Result Diagrams: 04/08/18 06:12 04/08/18 06:12 Labs: Laboratory Results - last 24 hr 04/07/18 04/07/18 04/07/18 18:00 18:25 18:25 WBC 9.5 RBC 4.16 Hgb 12.1 Hct 37.0 MCV 89.0 MCH 29.1 MCHC 32.7 L RDW 13.8 Plt Count 246 D MPV 8.2 Neut % (Auto) 68.5 Lymph % (Auto) 22.5 [place] % (Auto) 6.4 Eos % (Auto) 1.8 Baso % (Auto) 0.8 Neut # (Auto) 6.5 Lymph # (Auto) 2.1 [place] # (Auto) 0.6 Eos # (Auto) 0.2 Baso # (Auto) 0.1 ESR 103 H PT INR APTT Sodium 141 Potassium 3.7 Chloride 106 Carbon Dioxide 25 Anion Gap 14 BUN 19 H Creatinine 0.8 Est GFR ( Amer) > 60 Est GFR (Non-Af Amer) > 60 POC Glucose (mg/dL) Random Glucose 171 H Lactic Acid Calcium 9.3 Phosphorus 3.5 Magnesium 1.8 Total Bilirubin 0.4 AST 61 H D ALT 104 H D Alkaline Phosphatase 102 Troponin I < 0.0120 NT-Pro-B Natriuret Pep 118 Total Protein 7.5 Albumin 4.1 Globulin 3.4 Albumin/Globulin Ratio 1.2 Urine Color Urine Clarity Urine pH Ur Specific [place] Urine Protein Urine Glucose (UA) Urine Ketones Urine Blood Urine Nitrate Urine Bilirubin Urine Urobilinogen Ur Leukocyte Esterase Urine RBC (Auto) Urine Microscopic WBC Ur Squamous Epith Cells Urine Bacteria Hepatitis A IgM Ab Hep Bs Antigen Hep B Core IgM Ab Hepatitis C Antibody Influenza Typ A,B (EIA) Negative for flu a/b Blood Type Antibody Screen BBK History Checked 04/07/18 04/07/18 04/07/18 18:25 18:25 18:25 WBC RBC Hgb Hct MCV MCH MCHC RDW Plt Count MPV Neut % (Auto) Lymph % (Auto) [place] % (Auto) Eos % (Auto) Baso % (Auto) Neut # (Auto) Lymph # (Auto) [place] # (Auto) Eos # (Auto) Baso # (Auto) ESR PT 13.2 H INR 1.2 APTT 30.0 Sodium Potassium Chloride Carbon Dioxide Anion Gap BUN Creatinine Est GFR ( Amer) Est GFR (Non-Af Amer) POC Glucose (mg/dL) Random Glucose Lactic Acid Calcium Phosphorus Magnesium Total Bilirubin AST ALT Alkaline Phosphatase Troponin I NT-Pro-B Natriuret Pep Total Protein Albumin Globulin Albumin/Globulin Ratio Urine Color Straw Urine Clarity Slighty-cloudy Urine pH 6.0 Ur Specific [place] 1.010 Urine Protein Negative Urine Glucose (UA) Neg Urine Ketones Negative Urine Blood Negative Urine Nitrate Negative Urine Bilirubin Negative Urine Urobilinogen 0.2-1.0 Ur Leukocyte Esterase Neg Urine RBC (Auto) 1 Urine Microscopic WBC 2 Ur Squamous Epith Cells 6 H Urine Bacteria Few H Hepatitis A IgM Ab Hep Bs Antigen Hep B Core IgM Ab Hepatitis C Antibody Influenza Typ A,B (EIA) Blood Type A POSITIVE Antibody Screen Negative BBK History Checked No verified bt 04/08/18 04/08/18 04/08/18 06:00 06:12 06:12 WBC 7.6 RBC 3.63 L Hgb 10.8 L Hct 32.9 L MCV 90.6 MCH 29.6 MCHC 32.7 L RDW 13.9 Plt Count 232 MPV Neut % (Auto) Lymph % (Auto) [place] % (Auto) Eos % (Auto) Baso % (Auto) Neut # (Auto) Lymph # (Auto) [place] # (Auto) Eos # (Auto) Baso # (Auto) ESR PT INR APTT Sodium 141 Potassium 3.9 Chloride 108 H Carbon Dioxide 28 Anion Gap 9 L BUN 17 Creatinine 0.9 Est GFR ( Amer) > 60 Est GFR (Non-Af Amer) > 60 POC Glucose (mg/dL) 143 H Random Glucose 150 H Lactic Acid Calcium 8.9 Phosphorus Magnesium Total Bilirubin 0.4 AST 62 H ALT 97 H Alkaline Phosphatase 81 Troponin I NT-Pro-B Natriuret Pep Total Protein 6.4 Albumin 3.4 L Globulin 3.0 Albumin/Globulin Ratio 1.1 Urine Color Urine Clarity Urine pH Ur Specific [place] Urine Protein Urine Glucose (UA) Urine Ketones Urine Blood Urine Nitrate Urine Bilirubin Urine Urobilinogen Ur Leukocyte Esterase Urine RBC (Auto) Urine Microscopic WBC Ur Squamous Epith Cells Urine Bacteria Hepatitis A IgM Ab Hep Bs Antigen Hep B Core IgM Ab Hepatitis C Antibody Influenza Typ A,B (EIA) Blood Type Antibody Screen BBK History Checked 04/08/18 04/08/18 04/08/18 06:12 06:12 09:02 WBC RBC Hgb Hct MCV MCH MCHC RDW Plt Count MPV Neut % (Auto) Lymph % (Auto) [place] % (Auto) Eos % (Auto) Baso % (Auto) Neut # (Auto) Lymph # (Auto) [place] # (Auto) Eos # (Auto) Baso # (Auto) ESR PT INR APTT Sodium Potassium Chloride Carbon Dioxide Anion Gap BUN Creatinine Est GFR ( Amer) Est GFR (Non-Af Amer) POC Glucose (mg/dL) 149 H Random Glucose Lactic Acid 0.6 L Calcium Phosphorus Magnesium Total Bilirubin AST ALT Alkaline Phosphatase Troponin I NT-Pro-B Natriuret Pep Total Protein Albumin Globulin Albumin/Globulin Ratio Urine Color Urine Clarity Urine pH Ur Specific [place] Urine Protein Urine Glucose (UA) Urine Ketones Urine Blood Urine Nitrate Urine Bilirubin Urine Urobilinogen Ur Leukocyte Esterase Urine RBC (Auto) Urine Microscopic WBC Ur Squamous Epith Cells Urine Bacteria Hepatitis A IgM Ab Negative Hep Bs Antigen Negative Hep B Core IgM Ab Negative Hepatitis C Antibody Negative Influenza Typ A,B (EIA) Blood Type Antibody Screen BBK History Checked Assessment & Plan - Assessment and Plan (Free Text) Assessment: 58 yo female seen and evaluated at bedside for erythema and swelling to both legs L>R Plan: patient seen and evaluated chart, labs and vitals reviewed wound cultures taken last visit; yeast species bilateral leg x-rays reviewed from previous visit; no osseous abnormalities left leg dressed with DSD continue IV antibiotics podiatry will continue to follow the patient while in house thank you for the consult
[2018-04-08] MEDS: Meropenem 1 GM in Sodium Chloride 0.9% 100 ML IVPB SCH (20:18)
[2018-04-08] MEDS: Insulin Regular 100 units/ml SC SCH (23:42)
[2018-04-09 08:14] LABS: HEMOGLOBIN 10.5 g/dL (12.0-16.0); MEAN CELL VOLUME 88.9 fl (81.0-99.0); MEAN CORPUSCULAR HEMOGLOBIN 29.6 pg (27.0-31.0); MEAN CORPUSCULAR HGB CONC 33.3 g/dL (33.0-37.0); RBC 3.56 Mil/uL (3.80-5.20); RED CELL DISTRIBUTION WIDTH 14.2 % (11.5-14.5); WHITE BLOOD COUNT 6.3 K/uL (4.8-10.8)
[2018-04-09] MEDS: Insulin Regular 100 units/ml SC SCH ×4 (08:14→23:55)
[2018-04-09 08:15] LABS: ALB/GLOB RATIO 1.1 (1.0-2.1); ALBUMIN 3.4 g/dL (3.5-5.0); ALT/SGPT 99 U/L (9-52); AST/SGOT 60 U/L (14-36); BLOOD UREA NITROGEN 15 mg/dl (7-17); CALCIUM 8.8 mg/dL (8.4-10.2); GFR NON-AFRICAN AMERICAN > 60
[2018-04-09] MEDS: Meropenem 1 GM in Sodium Chloride 0.9% 100 ML IVPB SCH ×2 (09:44→21:17)
[2018-04-09] MEDS ORDERED: Povidone Iodine Topical 10% Sol ONE (11:20)
--- NOTE | 2018-04-09 12:55 | CP.PCM.PN ---
Subjective - Date & Time of Evaluation Date of Evaluation: 04/09/18 Time of Evaluation: 12:52 - Subjective Subjective: Podiatry consult for Dr. Esquivel 58 yo female seen and evaluated at bedside. Seen resting comfortably. States that she likes the dressing she has on and does not like compression as she was in pain for a week after a compressive dressing was put on that she had to take off herself. Denies any acute complaints today. Denies N/V/F/C/SOB/CP. Dressings seen clean dry and intact. Objective - Vital Signs/Intake and Output Vital Signs (last 24 hours): Temp Pulse Resp BP Pulse Ox 98 F 74 20 144/73 95 04/09/18 08:26 04/09/18 08:26 04/09/18 08:26 04/09/18 09:43 04/09/18 08:26 - Medications Medications: Current Medications Acetaminophen (Tylenol 325mg Tab) 650 mg PO Q6 PRN PRN Reason: Pain, moderate (4-7) Last Admin: 04/08/18 01:31 Dose: 650 mg Acetaminophen (Tylenol 325mg Tab) 650 mg PO Q6 PRN PRN Reason: Fever >100.4 F Atorvastatin Calcium (Lipitor) 20 mg PO DAILY [facility] Last Admin: 04/09/18 09:43 Dose: 20 mg Furosemide (Lasix) 20 mg PO DAILY [facility] Last Admin: 04/09/18 09:43 Dose: 20 mg Home Med (Liraglutide [Victoza 2-Paco]) 1.2 mg SQ DAILY [facility] Last Admin: 04/08/18 18:03 Dose: Not Given Hydrochlorothiazide (Microzide) 12.5 mg PO DAILY [facility] Last Admin: 04/09/18 09:44 Dose: 12.5 mg Sodium Chloride (Sodium Chloride 0.9%) 1,000 mls @ 80 mls/hr IV .[id number] [facility] Last Admin: 04/08/18 23:44 Dose: 80 mls/hr Vancomycin HCl 1 gm/ Sodium (Chloride) 250 mls @ 166.667 mls/hr IVPB Q12 [facility]; Protocol Last Admin: 04/09/18 09:45 Dose: 166.667 mls/hr Meropenem 1 gm/ Sodium (Chloride) 100 mls @ 100 mls/hr IVPB Q12 [facility]; Protocol Last Admin: 04/09/18 09:44 Dose: 100 mls/hr Insulin Human Regular (Humulin R) 0 units SC ACHS [facility]; Protocol Last Admin: 04/09/18 11:19 Dose: Not Given Ketorolac Tromethamine (Toradol) 30 mg IVP Q6 PRN PRN Reason: Pain, severe (8-10) Last Admin: 04/08/18 21:43 Dose: 30 mg Lisinopril (Zestril) 20 mg PO DAILY [facility] Last Admin: 04/09/18 09:43 Dose: 20 mg Metformin HCl (Glucophage) 1,000 mg PO DAILY [facility] Last Admin: 04/09/18 09:43 Dose: 1,000 mg - Labs Labs: 04/09/18 07:00 04/09/18 07:00 PT 13.2 Seconds (9.8-13.1) H 04/07/18 18:25 INR 1.2 04/07/18 18:25 APTT 30.0 Seconds (25.6-37.1) 04/07/18 18:25 - Constitutional Appears: Well, Non-toxic, No Acute Distress - Head Exam Head Exam: ATRAUMATIC, NORMOCEPHALIC - Extremities Exam Additional comments: Bilateral lower extremity exam: vascular: DP 2/4 b/l, PT nonpalpable secondary to +2 pitting edema, CFT <5 secs x 10, TG warm to cool, edema and erythema noted in both legs circumferentially L>R derm: two open lesions noted on the lateral aspect of the left distal leg, scab covering the ulcer, granular base, no drainage noted, no malodor, no probe to bone or tendon, daisy wound erythema noted. Multiple scabs noted on the right leg, fulled covered no open wounds neuro: protective sensation intact via ipswich 4 ortho: pain upon palpation to both legs L>R - Neurological Exam Neurological Exam: Alert, Awake, Oriented x3 - Psychiatric Exam Psychiatric exam: Normal Affect, Normal Mood Assessment and Plan - Assessment and Plan (Free Text) Assessment: 58 yo female with erythema and swelling to both legs L>R and ulceration to left lower extremity Plan: patient seen and evaluated Discussed in detail with Dr. Esquivel Afebrile, absent leukocytosis wound cultures taken last visit; yeast species bilateral leg x-rays reviewed from previous visit; no osseous abnormalities left leg dressed with betadine and DSD ID consulted, recs appreciated continue IV antibiotics podiatry will continue to follow the patient while in house
[2018-04-09] MEDS: Sodium Chloride 0.9% 1,000 ML IV SCH (13:46)
--- NOTE | 2018-04-09 19:51 | CP.PCM.PN ---
Subjective - Date & Time of Evaluation Date of Evaluation: 04/09/18 Time of Evaluation: 19:51 - Subjective Subjective: I D NOTE 58 YO MORBIDLY OBESE FEMALE c CHRONIC LEG ULCERS ALONG c CELLULITIS,WHO WAS READMITTED TO HOSPITAL AFTER 24 HRS DISCHARGR. PATIENT NEEDS GROUP HOME IV ANTIBIOTIC RX CONTINUE PRESENT RX Objective - Vital Signs/Intake and Output Vital Signs (last 24 hours): Temp Pulse Resp BP Pulse Ox 99.6 F 77 18 132/76 95 04/09/18 16:40 04/09/18 16:40 04/09/18 16:40 04/09/18 16:40 04/09/18 16:40 Intake and Output: 04/09/18 04/10/18 18:59 06:59 Intake Total 960 Balance 960 - Medications Medications: Current Medications Acetaminophen (Tylenol 325mg Tab) 650 mg PO Q6 PRN PRN Reason: Pain, moderate (4-7) Last Admin: 04/08/18 01:31 Dose: 650 mg Acetaminophen (Tylenol 325mg Tab) 650 mg PO Q6 PRN PRN Reason: Fever >100.4 F Atorvastatin Calcium (Lipitor) 20 mg PO DAILY [facility] Last Admin: 04/09/18 09:43 Dose: 20 mg Fluconazole (Diflucan) 100 mg PO DAILY [facility]; Protocol Furosemide (Lasix) 20 mg PO DAILY [facility] Last Admin: 04/09/18 09:43 Dose: 20 mg Home Med (Liraglutide [Victoza 2-Paco]) 1.2 mg SQ DAILY [facility] Last Admin: 04/08/18 18:03 Dose: Not Given Hydrochlorothiazide (Microzide) 12.5 mg PO DAILY [facility] Last Admin: 04/09/18 09:44 Dose: 12.5 mg Sodium Chloride (Sodium Chloride 0.9%) 1,000 mls @ 80 mls/hr IV .[id number] [facility] Last Admin: 04/09/18 13:46 Dose: 80 mls/hr Vancomycin HCl 1 gm/ Sodium (Chloride) 250 mls @ 166.667 mls/hr IVPB Q12 [facility]; Protocol Last Admin: 04/09/18 09:45 Dose: 166.667 mls/hr Meropenem 1 gm/ Sodium (Chloride) 100 mls @ 100 mls/hr IVPB Q12 [facility]; Protocol Last Admin: 04/09/18 09:44 Dose: 100 mls/hr Insulin Human Regular (Humulin R) 0 units SC ACHS [facility]; Protocol Last Admin: 04/09/18 17:27 Dose: 1 unit Ketorolac Tromethamine (Toradol) 30 mg IVP Q6 PRN PRN Reason: Pain, severe (8-10) Last Admin: 04/09/18 17:28 Dose: 30 mg Lisinopril (Zestril) 20 mg PO DAILY [facility] Last Admin: 04/09/18 09:43 Dose: 20 mg Metformin HCl (Glucophage) 1,000 mg PO DAILY [facility] Last Admin: 04/09/18 09:43 Dose: 1,000 mg - Labs Labs: 04/09/18 07:00 04/09/18 07:00 PT 13.2 Seconds (9.8-13.1) H 04/07/18 18:25 INR 1.2 04/07/18 18:25 APTT 30.0 Seconds (25.6-37.1) 04/07/18 18:25
[2018-04-10] MEDS: Sodium Chloride 0.9% 1,000 ML IV SCH (00:21)
[2018-04-10] MEDS: Insulin Regular 100 units/ml SC SCH ×4 (07:48→22:55)
[2018-04-10] MEDS: Meropenem 1 GM in Sodium Chloride 0.9% 100 ML IVPB SCH ×2 (10:05→21:48)
[2018-04-11 06:35] LABS: HEMOGLOBIN 10.9 g/dL (12.0-16.0); MEAN CELL VOLUME 88.6 fl (81.0-99.0); MEAN CORPUSCULAR HEMOGLOBIN 29.1 pg (27.0-31.0); MEAN CORPUSCULAR HGB CONC 32.9 g/dL (33.0-37.0); RBC 3.75 Mil/uL (3.80-5.20); RED CELL DISTRIBUTION WIDTH 13.8 % (11.5-14.5); WHITE BLOOD COUNT 7.3 K/uL (4.8-10.8)
[2018-04-11 06:48] LABS: ALB/GLOB RATIO 1.2 (1.0-2.1); ALBUMIN 3.4 g/dL (3.5-5.0); ALT/SGPT 63 U/L (9-52); AST/SGOT 31 U/L (14-36); BLOOD UREA NITROGEN 17 mg/dl (7-17); GFR NON-AFRICAN AMERICAN > 60
--- NOTE | 2018-04-11 08:39 | CP.PCM.PN ---
Subjective - Date & Time of Evaluation Date of Evaluation: 04/11/18 Time of Evaluation: 08:39 - Subjective Subjective: Podiatry consult for Dr. Esquivel 58 yo female seen and evaluated at bedside. Seen resting comfortably. Denies any acute complaints today. Denies N/V/F/C/SOB/CP. Dressings seen clean dry and intact. Objective - Vital Signs/Intake and Output Vital Signs (last 24 hours): Temp Pulse Resp BP Pulse Ox 98.3 F 68 20 134/79 95 04/11/18 08:03 04/11/18 08:03 04/11/18 08:03 04/11/18 08:03 04/11/18 08:03 - Medications Medications: Current Medications Acetaminophen (Tylenol 325mg Tab) 650 mg PO Q6 PRN PRN Reason: Pain, moderate (4-7) Last Admin: 04/08/18 01:31 Dose: 650 mg Acetaminophen (Tylenol 325mg Tab) 650 mg PO Q6 PRN PRN Reason: Fever >100.4 F Atorvastatin Calcium (Lipitor) 20 mg PO DAILY [facility] Last Admin: 04/10/18 10:04 Dose: 20 mg Fluconazole (Diflucan) 100 mg PO DAILY [facility]; Protocol Last Admin: 04/10/18 10:03 Dose: 100 mg Furosemide (Lasix) 20 mg PO DAILY [facility] Last Admin: 04/10/18 10:04 Dose: 20 mg Home Med (Liraglutide [Victoza 2-Paco]) 1.2 mg SQ DAILY [facility] Last Admin: 04/08/18 18:03 Dose: Not Given Hydrochlorothiazide (Microzide) 12.5 mg PO DAILY [facility] Last Admin: 04/10/18 10:04 Dose: 12.5 mg Meropenem 1 gm/ Sodium (Chloride) 100 mls @ 100 mls/hr IVPB Q12 [facility]; Protocol Last Admin: 04/10/18 21:48 Dose: 100 mls/hr Vancomycin HCl 750 mg/ Sodium (Chloride) 250 mls @ 250 mls/hr IVPB Q12H [facility]; Protocol Last Admin: 04/10/18 23:30 Dose: 250 mls/hr Insulin Human Regular (Humulin R) 0 units SC ACHS [facility]; Protocol Last Admin: 04/10/18 22:55 Dose: Not Given Ketorolac Tromethamine (Toradol) 30 mg IVP Q6 PRN PRN Reason: Pain, severe (8-10) Last Admin: 04/11/18 08:00 Dose: 30 mg Lactic Acid (Lac-Hydrin 12% Lotion (225 G)) 1 applic TOP TID [facility] Lisinopril (Zestril) 20 mg PO DAILY [facility] Last Admin: 04/10/18 10:04 Dose: 20 mg Metformin HCl (Glucophage) 1,000 mg PO DAILY [facility] Last Admin: 04/10/18 10:04 Dose: 1,000 mg - Labs Labs: 04/11/18 06:10 04/11/18 06:10 PT 13.2 Seconds (9.8-13.1) H 04/07/18 18:25 INR 1.2 04/07/18 18:25 APTT 30.0 Seconds (25.6-37.1) 04/07/18 18:25 - Constitutional Appears: Well, Non-toxic, No Acute Distress - Head Exam Head Exam: ATRAUMATIC, NORMOCEPHALIC - Extremities Exam Additional comments: Bilateral lower extremity exam: vascular: DP 2/4 b/l, PT nonpalpable secondary to +2 pitting edema, CFT <5 secs x 10, TG warm to cool, edema and erythema noted in both legs circumferentially L>R derm: two open lesions noted on the lateral aspect of the left distal leg, scab covering the ulcer, granular base, no drainage noted, no malodor, no probe to bone or tendon, daisy wound erythema noted. Multiple scabs noted on the right leg, fulled covered no open wounds neuro: protective sensation intact via ipswich /4 ortho: pain upon palpation to both legs L>R - Neurological Exam Neurological Exam: Alert, Awake, Oriented x3 - Psychiatric Exam Psychiatric exam: Normal Affect, Normal Mood Assessment and Plan - Assessment and Plan (Free Text) Assessment: 58 yo female with erythema and swelling to both legs L>R and venous stasis ulceration to left lower extremity Plan: Patient seen and evaluated Discussed in detail with Dr. Esquivel Afebrile, absent leukocytosis wound culture - stenotrophomonas maltophilia, enterococcus faecalis bilateral leg x-rays reviewed from previous visit; no osseous abnormalities left leg dressed with betadine and DSD ID consulted, recs appreciated - fdc IV abx continue IV antibiotics podiatry will continue to follow the patient while in house
[2018-04-11] MEDS: Insulin Regular 100 units/ml SC SCH ×4 (08:57→22:00)
[2018-04-11] MEDS: Meropenem 1 GM in Sodium Chloride 0.9% 100 ML IVPB SCH ×2 (08:59→20:53)
[2018-04-11] MEDS ORDERED: Potassium Chloride 20 mEq ER Tab PO ONE (14:00)
[2018-04-11] MEDS: Enoxaparin 40 mg Syringe SC SCH (18:07)
[2018-04-12] MEDS ORDERED: Lidocaine 1% Inj (20ml) ONE ×2 (10:01→11:04)
--- NOTE | 2018-04-12 11:36 | PCM.SURG1 ---
Surgeon's Initial Post Op Note - Surgeon's Notes Surgeon: Isaiah Yen MD Stove Fitter: NONE Type of Anesthesia: Local Pre-Operative Diagnosis: Poor venous access Operative Findings: US showed patent right basilic vein Post-Operative Diagnosis: Poor venous access Operation Performed: Single lumen picc placement right arm. Specimen/Specimens Removed: None Estimated Blood Loss: EBL {In ML}: 2 Blood Products Given: N/A Drains Used: No Drains Post-Op Condition: Good Date of Surgery/Procedure: 04/12/18 Time of Surgery/Procedure: 11:30
--- NOTE | 2018-04-12 11:41 | CP.PCM.PCO ---
Assessment/Plan - Assessment/Plan Assessment (Free Text): Per Dr. Alvarez, patient needs IV antibiotics x 2 weeks. Vancomycin IV 750g q12 hrs and Merrem IV 1g q12 hrs. Patient stable, for picc line today
[2018-04-12] MEDS: Insulin Regular 100 units/ml SC SCH ×4 (12:00→22:55)
[2018-04-12] MEDS: Meropenem 1 GM in Sodium Chloride 0.9% 100 ML IVPB SCH ×2 (12:00→23:25)
[2018-04-12] MEDS: Enoxaparin 40 mg Syringe SC SCH (12:00)
--- NOTE | 2018-04-12 12:17 | CP.PCM.PN ---
Subjective - Date & Time of Evaluation Date of Evaluation: 04/12/18 Time of Evaluation: 12:15 - Subjective Subjective: Podiatry consult for Dr. Esquivel 58 yo female seen and evaluated at bedside. Seen resting comfortably. Denies any acute complaints today. Denies N/V/F/C/SOB/CP. Dressings seen clean dry and intact. Has no pedal complaints today. Objective - Vital Signs/Intake and Output Vital Signs (last 24 hours): Temp Pulse Resp BP Pulse Ox 99.5 F 62 22 135/82 95 04/12/18 11:04 04/12/18 12:02 04/12/18 11:04 04/12/18 12:02 04/12/18 07:58 - Medications Medications: Current Medications Acetaminophen (Tylenol 325mg Tab) 650 mg PO Q6 PRN PRN Reason: Pain, moderate (4-7) Last Admin: 04/08/18 01:31 Dose: 650 mg Acetaminophen (Tylenol 325mg Tab) 650 mg PO Q6 PRN PRN Reason: Fever >100.4 F Atorvastatin Calcium (Lipitor) 20 mg PO DAILY [facility] Last Admin: 04/12/18 12:00 Dose: 20 mg Enoxaparin Sodium (Lovenox) 40 mg SC DAILY [facility]; Protocol Last Admin: 04/12/18 12:00 Dose: 40 mg Fluconazole (Diflucan) 100 mg PO DAILY [facility]; Protocol Last Admin: 04/12/18 12:02 Dose: 100 mg Furosemide (Lasix) 20 mg PO DAILY [facility] Last Admin: 04/12/18 11:59 Dose: 20 mg Home Med (Liraglutide [Victoza 2-Paco]) 1.2 mg SQ DAILY [facility] Last Admin: 04/08/18 18:03 Dose: Not Given Hydrochlorothiazide (Microzide) 12.5 mg PO DAILY [facility] Last Admin: 04/12/18 12:01 Dose: 12.5 mg Meropenem 1 gm/ Sodium (Chloride) 100 mls @ 100 mls/hr IVPB Q12 [facility]; Protocol Last Admin: 04/12/18 12:00 Dose: 100 mls/hr Vancomycin HCl 750 mg/ Sodium (Chloride) 250 mls @ 250 mls/hr IVPB Q12H [facility]; Protocol Last Admin: 04/12/18 11:58 Dose: 250 mls/hr Insulin Human Regular (Humulin R) 0 units SC ACHS [facility]; Protocol Last Admin: 04/12/18 12:00 Dose: Not Given Ketorolac Tromethamine (Toradol) 30 mg IVP Q6 PRN PRN Reason: Pain, severe (8-10) Last Admin: 04/11/18 08:00 Dose: 30 mg Lactic Acid (Lac-Hydrin 12% Lotion (225 G)) 1 applic TOP TID [facility] Last Admin: 04/12/18 11:59 Dose: 1 applic Lisinopril (Zestril) 20 mg PO DAILY [facility] Last Admin: 04/12/18 12:02 Dose: 20 mg Metformin HCl (Glucophage) 1,000 mg PO DAILY [facility] Last Admin: 04/12/18 12:02 Dose: 1,000 mg - Labs Labs: 04/11/18 06:10 04/11/18 06:10 PT 13.2 Seconds (9.8-13.1) H 04/07/18 18:25 INR 1.2 04/07/18 18:25 APTT 30.0 Seconds (25.6-37.1) 04/07/18 18:25 - Constitutional Appears: Well, Non-toxic, No Acute Distress - Head Exam Head Exam: ATRAUMATIC, NORMOCEPHALIC - Extremities Exam Additional comments: Bilateral lower extremity exam: vascular: DP 2/4 b/l, PT nonpalpable secondary to +2 pitting edema, CFT <5 secs x 10, TG warm to cool, edema and erythema noted in both legs circumferentially L>R derm: two open lesions noted on the lateral aspect of the left distal leg, scab covering the ulcer, granular base, no drainage noted, no malodor, no probe to bone or tendon, daisy wound erythema noted - improved since admission Multiple scabs noted on the right leg, fulled covered no open wounds neuro: protective sensation intact via ipswich /4 ortho: pain upon palpation to both legs L>R - Neurological Exam Neurological Exam: Alert, Awake, Oriented x3 - Psychiatric Exam Psychiatric exam: Normal Affect, Normal Mood Assessment and Plan - Assessment and Plan (Free Text) Assessment: 58F with erythema and swelling to both legs L>R and venous stasis ulceration to left lower extremity - improving Plan: Patient seen and evaluated Discussed in detail with Dr. Purisima Afebrile, absent leukocytosis wound culture - stenotrophomonas maltophilia, enterococcus faecalis bilateral leg x-rays reviewed from previous visit; no osseous abnormalities left leg dressed with betadine and DSD ID consulted, recs appreciated - 2 weeks IV vanc and merrem upon d/c continue IV antibiotics Stable for d/c from podiatry standpoint Follow up with Dr. Esquivel upon d/c podiatry will continue to follow the patient while in house
[2018-04-12 12:44] LABS: HEMOGLOBIN 11.6 g/dL (12.0-16.0); MEAN CELL VOLUME 88.3 fl (81.0-99.0); MEAN CORPUSCULAR HEMOGLOBIN 28.7 pg (27.0-31.0); MEAN CORPUSCULAR HGB CONC 32.5 g/dL (33.0-37.0); RBC 4.03 Mil/uL (3.80-5.20); WHITE BLOOD COUNT 7.4 K/uL (4.8-10.8)
[2018-04-12 12:52] LABS: BLOOD UREA NITROGEN 14 mg/dl (7-17); CALCIUM 9.1 mg/dL (8.4-10.2); GFR NON-AFRICAN AMERICAN > 60
--- NOTE | 2018-04-12 13:43 | VASCULAR ---
PROCEDURE: Date of procedure: 04/12/2018 Procedure: 1. Placement of a right arm PICC with ultrasound and fluoroscopic guidance, CPT 55529 2. PICC tip confirmation with spot radiograph and is in the superior vena cava Medications: 1 percent lidocaine Total Fluoro time: 3.2 Seconds Radiation: 0.82 MGy EBL: 2 cc HISTORY: Poor venous access TECHNIQUE: Following informed consent and procedure time-out, the patient was placed supine on the interventional table and the right arm prepped and draped in the usual sterile fashion. Ultrasound showed a patent and compressible right basilic vein. After the skin was anesthetized with lidocaine, the basilic vein was accessed with micro micropuncture technique using ultrasound guidance. A guidewire was then advanced under fluoroscopic guidance into the superior vena cava. An image documenting ultrasound guidance for vascular access was permanently saved. The length of the single-lumen 4 [place] PICC was trimmed to 43 centimeters and advanced through a peel-away sheath. The PICC was position with tip of PICC confirm a spot radiograph the superior vena cava. The PICC was secured to the patient's skin. The PICC was flushed. A biopatch and sterile dressing was applied. IMPRESSION: Placement of a single-lumen 4 [place] Citizen PICC trimmed to 43 centimeters via right basilic vein. The tip of the PICC is confirmed with spot radiograph and is in the superior vena cava.
[2018-04-13 01:20] VITALS: O2SAT 95
[2018-04-13] MEDS: Insulin Regular 100 units/ml SC SCH ×2 (07:05→11:30)
[2018-04-13 08:43] VITALS: BP 140/83; PULSE 67; RESP 20; TEMP 98.5
[2018-04-13] MEDS: Enoxaparin 40 mg Syringe SC SCH (10:46)
[2018-04-13] MEDS: Meropenem 1 GM in Sodium Chloride 0.9% 100 ML IVPB SCH (10:49)
--- NOTE | 2018-04-13 13:44 | CP.PCM.PN ---
Subjective - Date & Time of Evaluation Date of Evaluation: 04/13/18 Time of Evaluation: 13:43 - Subjective Subjective: Podiatry consult for Dr. Esquivel 58 yo female seen and evaluated at bedside. Seen resting comfortably. Denies any acute complaints today. Denies N/V/F/C/SOB/CP. Dressings seen clean dry and intact. Has no pedal complaints today. Objective - Vital Signs/Intake and Output Vital Signs (last 24 hours): Temp Pulse Resp BP Pulse Ox 98.5 F 67 20 140/83 95 04/13/18 08:42 04/13/18 10:47 04/13/18 08:42 04/13/18 10:47 04/13/18 08:42 - Medications Medications: Current Medications Acetaminophen (Tylenol 325mg Tab) 650 mg PO Q6 PRN PRN Reason: Pain, moderate (4-7) Last Admin: 04/08/18 01:31 Dose: 650 mg Acetaminophen (Tylenol 325mg Tab) 650 mg PO Q6 PRN PRN Reason: Fever >100.4 F Atorvastatin Calcium (Lipitor) 20 mg PO DAILY [facility] Last Admin: 04/13/18 10:46 Dose: 20 mg Enoxaparin Sodium (Lovenox) 40 mg SC DAILY [facility]; Protocol Last Admin: 04/13/18 10:46 Dose: 40 mg Fluconazole (Diflucan) 100 mg PO DAILY [facility]; Protocol Last Admin: 04/13/18 10:44 Dose: 100 mg Furosemide (Lasix) 20 mg PO DAILY [facility] Last Admin: 04/13/18 10:45 Dose: 20 mg Home Med (Liraglutide [Victoza 2-Paco]) 1.2 mg SQ DAILY [facility] Last Admin: 04/08/18 18:03 Dose: Not Given Hydrochlorothiazide (Microzide) 12.5 mg PO DAILY [facility] Last Admin: 04/13/18 10:46 Dose: 12.5 mg Meropenem 1 gm/ Sodium (Chloride) 100 mls @ 100 mls/hr IVPB Q12 [facility]; Protocol Last Admin: 04/13/18 10:49 Dose: 100 mls/hr Vancomycin HCl 750 mg/ Sodium (Chloride) 250 mls @ 250 mls/hr IVPB Q12H [facility]; Protocol Last Admin: 04/13/18 10:47 Dose: 250 mls/hr Insulin Human Regular (Humulin R) 0 units SC ACHS [facility]; Protocol Last Admin: 04/13/18 11:30 Dose: Not Given Ketorolac Tromethamine (Toradol) 30 mg IVP Q6 PRN PRN Reason: Pain, severe (8-10) Last Admin: 04/11/18 08:00 Dose: 30 mg Lactic Acid (Lac-Hydrin 12% Lotion (225 G)) 1 applic TOP TID [facility] Last Admin: 04/13/18 13:37 Dose: 1 applic Lisinopril (Zestril) 20 mg PO DAILY [facility] Last Admin: 04/13/18 10:47 Dose: 20 mg Metformin HCl (Glucophage) 1,000 mg PO DAILY [facility] Last Admin: 04/13/18 10:45 Dose: 1,000 mg - Labs Labs: 04/12/18 12:36 04/12/18 12:36 PT 13.2 Seconds (9.8-13.1) H 04/07/18 18:25 INR 1.2 04/07/18 18:25 APTT 30.0 Seconds (25.6-37.1) 04/07/18 18:25 - Constitutional Appears: Well, Non-toxic, No Acute Distress - Head Exam Head Exam: ATRAUMATIC, NORMOCEPHALIC - Extremities Exam Additional comments: Bilateral lower extremity exam: vascular: DP 2/4 b/l, PT nonpalpable secondary to +2 pitting edema, CFT <5 secs x 10, TG warm to cool, edema and erythema noted in both legs circumferentially L>R derm: two open lesions noted on the lateral aspect of the left distal leg, scab covering the ulcer, granular base, no drainage noted, no malodor, no probe to bone or tendon, daisy wound erythema noted - improved since admission Multiple scabs noted on the right leg, fulled covered no open wounds neuro: protective sensation intact via ipswich /4 ortho: pain upon palpation to both legs L>R - Neurological Exam Neurological Exam: Alert, Awake, Oriented x3 - Psychiatric Exam Psychiatric exam: Normal Affect, Normal Mood Assessment and Plan - Assessment and Plan (Free Text) Assessment: 58F with erythema and swelling to both legs L>R and venous stasis ulceration to left lower extremity - improving Plan: Patient seen and evaluated Discussed in detail with Dr. Purisima Afebrile, absent leukocytosis wound culture - stenotrophomonas maltophilia, enterococcus faecalis bilateral leg x-rays reviewed from previous visit; no osseous abnormalities left leg dressed with betadine and DSD ID consulted, recs appreciated - 2 weeks IV vanc and merrem upon d/c continue IV antibiotics PICC in place Stable for d/c from podiatry standpoint Follow up with Dr. Esquivel upon d/c podiatry will continue to follow the patient while in house
--- NOTE | 2018-04-13 14:31 | CP.PCM.DIS ---
Provider - Provider Date of Admission: 04/09/18 18:27 Attending physician: Marv Sweet MD Time Spent in preparation of Discharge (in minutes): 38 Diagnosis - Discharge Diagnosis (1) Cellulitis Status: Acute (2) Bilateral lower extremity edema Status: Acute (3) Sepsis Status: Acute (4) Diabetes mellitus type 2 in obese Status: Acute (5) Hypertension Status: Acute Hospital Course - Lab Results Lab Results: Micro Results 04/07/18 18:00 Blood Blood Culture - Final NO GROWTH AFTER 5 DAYS 04/07/18 18:00 Blood Gram Stain - Final TEST NOT PERFORMED 04/07/18 18:00 Blood Blood Culture - Final NO GROWTH AFTER 5 DAYS 04/07/18 18:00 Blood Gram Stain - Final TEST NOT PERFORMED 04/07/18 17:30 Abscess - Leg-Left Gram Stain - Final 04/07/18 17:30 Abscess - Leg-Left Wound Culture - Final Stenotrophomonas Maltophilia Julia Parapsilosis 04/08/18 12:30 Leg - Left Gram Stain - Final 04/08/18 12:30 Leg - Left Wound Culture - Final Stenotrophomonas Maltophilia Enterococcus Faecalis 04/07/18 18:25 Urine Urine Culture - Final No Growth (<1,000 CFU/ML) Most Recent Lab Values WBC 7.4 K/uL (4.8-10.8) 04/12/18 12:36 RBC 4.03 Mil/uL (3.80-5.20) 04/12/18 12:36 Hgb 11.6 g/dL (12.0-16.0) L 04/12/18 12:36 Hct 35.6 % (34.0-47.0) 04/12/18 12:36 MCV 88.3 fl (81.0-99.0) 04/12/18 12:36 MCH 28.7 pg (27.0-31.0) 04/12/18 12:36 MCHC 32.5 g/dL (33.0-37.0) L 04/12/18 12:36 RDW 14.0 % (11.5-14.5) 04/12/18 12:36 Plt Count 195 K/uL (130-400) 04/12/18 12:36 MPV 8.2 fl (7.2-11.7) 04/07/18 18:25 Neut % (Auto) 68.5 % (50.0-75.0) 04/07/18 18:25 Lymph % (Auto) 22.5 % (20.0-40.0) 04/07/18 18:25 Millard % (Auto) 6.4 % (0.0-10.0) 04/07/18 18:25 Eos % (Auto) 1.8 % (0.0-4.0) 04/07/18 18:25 Baso % (Auto) 0.8 % (0.0-2.0) 04/07/18 18:25 Neut # (Auto) 6.5 K/uL (1.8-7.0) 04/07/18 18:25 Lymph # (Auto) 2.1 K/uL (1.0-4.3) 04/07/18 18:25 Millard # (Auto) 0.6 K/uL (0.0-0.8) 04/07/18 18:25 Eos # (Auto) 0.2 K/uL (0.0-0.7) 04/07/18 18:25 Baso # (Auto) 0.1 K/uL (0.0-0.2) 04/07/18 18:25 ESR 103 mm/hr (0-30) H 04/07/18 18:25 PT 13.2 Seconds (9.8-13.1) H 04/07/18 18:25 INR 1.2 04/07/18 18:25 APTT 30.0 Seconds (25.6-37.1) 04/07/18 18:25 Sodium 141 mmol/l (132-148) 04/12/18 12:36 Potassium 4.1 MMOL/L (3.6-5.0) 04/12/18 12:36 Chloride 102 mmol/L (98-107) 04/12/18 12:36 Carbon Dioxide 32 mmol/L (22-30) H 04/12/18 12:36 Anion Gap 11 (10-20) 04/12/18 12:36 BUN 14 mg/dl (7-17) 04/12/18 12:36 Creatinine 0.9 mg/dl (0.7-1.2) 04/12/18 12:36 Est GFR ( Amer) > 60 04/12/18 12:36 Est GFR (Non-Af Amer) > 60 04/12/18 12:36 POC Glucose (mg/dL) 135 mg/dL (65-110) H 04/13/18 11:11 Random Glucose 211 mg/dL (65-105) H 04/12/18 12:36 Lactic Acid 0.6 MMOL/L (0.7-2.1) L 04/08/18 06:12 Calcium 9.1 mg/dL (8.4-10.2) 04/12/18 12:36 Phosphorus 3.5 mg/dl (2.5-4.5) 04/07/18 18:25 Magnesium 1.8 MG/DL (1.6-2.3) 04/07/18 18:25 Total Bilirubin 0.2 mg/dl (0.2-1.3) 04/11/18 06:10 AST 31 U/L (14-36) 04/11/18 06:10 ALT 63 U/L (9-52) H D 04/11/18 06:10 Alkaline Phosphatase 68 U/L (38-126) 04/11/18 06:10 Troponin I < 0.0120 ng/mL (0.00-0.120) 04/07/18 18:25 C-Reactive Protein 50.70 mg/L (0.0-9.9) H 04/07/18 18:25 NT-Pro-B Natriuret Pep 118 pg/ml (0-900) 04/07/18 18:25 Total Protein 6.3 G/DL (6.3-8.2) 04/11/18 06:10 Albumin 3.4 g/dL (3.5-5.0) L 04/11/18 06:10 Globulin 2.9 gm/dL (2.2-3.9) 04/11/18 06:10 Albumin/Globulin Ratio 1.2 (1.0-2.1) 04/11/18 06:10 Procalcitonin < 0.05 NG/ML (0.19-0.49) L 04/10/18 06:20 Urine Color Straw (YELLOW) 04/07/18 18:25 Urine Clarity Slighty-cloudy (Clear) 04/07/18 18:25 Urine pH 6.0 (5.0-8.0) 04/07/18 18:25 Ur Specific [place] 1.010 (1.003-1.030) 04/07/18 18:25 Urine Protein Negative mg/dL (NEGATIVE) 04/07/18 18:25 Urine Glucose (UA) Neg mg/dL (Normal) 04/07/18 18:25 Urine Ketones Negative mg/dL (NEGATIVE) 04/07/18 18:25 Urine Blood Negative (NEGATIVE) 04/07/18 18:25 Urine Nitrate Negative (NEGATIVE) 04/07/18 18: Urine Bilirubin Negative (NEGATIVE) 04/07/18 18:25 Urine Urobilinogen 0.2-1.0 mg/dL (0.2-1.0) 04/07/18 18:25 Ur Leukocyte Esterase Neg Chris/uL (Negative) 04/07/18 18:25 Urine RBC (Auto) 1 /hpf (0-3) 04/07/18 18:25 Urine Microscopic WBC 2 /hpf (0-5) 04/07/18 18:25 Ur Squamous Epith Cells 6 /hpf (0-5) H 04/07/18 18:25 Urine Bacteria Few (<OCC) H 04/07/18 18:25 Vancomycin Trough 12.9 ug/mL (5.0-10.0) H 04/13/18 08:30 Hepatitis A IgM Ab Negative (NEGATIVE) 04/08/18 06:12 Hep Bs Antigen Negative (NEGATIVE) 04/08/18 06:12 Hep B Core IgM Ab Negative (NEGATIVE) 04/08/18 06:12 Hepatitis C Antibody Negative (NEGATIVE) 04/08/18 06:12 Influenza Typ A,B (EIA) Negative for flu a/b (NEGATIVE) 04/07/18 18:00 Blood Type A POSITIVE 04/07/18 18:25 Antibody Screen Negative 04/07/18 18:25 BBK History Checked No verified bt 04/07/18 18:25 - Hospital Course Hospital Course: 58 y/o F patient with PMH of HTN, DM and HLD admitted with b/l lower leg cellulitis. Fail PO abx course at home. ID and Podiatry evaluated patient through admission, blood work wnl, blood and urine cx, wound cx positive E. faecalis and Stenotrophomona maltophilia. Patient did better during admission and cleared for discharge to complete 2 weeks of abx course. afebrile, VSS. Patient got PICC line and discharged in stable condition with instructions to f/u with PCP and Wound center. Discharge Exam - Head Exam Head Exam: NORMAL INSPECTION - Eye Exam Eye Exam: EOMI - Respiratory Exam Respiratory Exam: Clear to PA & Lateral, NORMAL BREATHING PATTERN - Cardiovascular Exam Cardiovascular Exam: REGULAR RHYTHM, +S1, +S2. absent: Tachycardia - GI/Abdominal Exam GI & Abdominal Exam: Normal Bowel Sounds, Soft. absent: Tenderness - Extremities Exam Additional comments: Bilateral LE edema and erythema improving, dressing noted clean and dry. PT and DP 2+ - Neurological Exam Neurological exam: Alert, CN II-XII Intact, Oriented x3 - Skin Skin Exam: Dry, Warm Discharge Plan - Discharge Medications Prescriptions: Fluconazole [Diflucan] 100 mg PO DAILY #7 tab Meropenem [Merrem IV] 1 gm IVPB Q12 #28 vial Vancomycin 750mg [Vancomycin 750 mg in NS] 750 mg IVPB Q12 #28 bag - Follow Up Plan Condition: FAIR Disposition: HOME/ ROUTINE Instructions: Cellulitis (Skin Infection), Adult (DC), Peripherally-Inserted Central Catheter (DC) Additional Instructions: follow up with primary MD and podiatry in 1 week elieser infusions [phone] [facility] [phone] Referrals: Josiah Alvarez MD [Medical Doctor] - Mago Boyle DPM [Staff Provider] -
== END 2018-04-13 14:50 | disposition home health service (06) | DRG 277 ==
LOC: H.ER 15:58 → H.ERHOLD 20:23 → H.MEDSURG1 04-08 18:30 → OBSVTOIN 04-09 18:27 → H.MEDSURG1 04-09 20:12
PROVIDERS: ADMIT Family Medicine; ATTEND Family Medicine
PROC: 02HV33Z Insertion of Infusion Device into Superior Vena Cava, Percutaneous Approach (ICD-10-PCS; principal; 2018-04-12)
PROC: B548ZZA Ultrasonography of Superior Vena Cava, Guidance (ICD-10-PCS; 2018-04-12)
PROC: B518ZZA Fluoroscopy of Superior Vena Cava, Guidance (ICD-10-PCS; 2018-04-12)
PROC: 3E04329 Introduction of Other Anti-infective into Central Vein, Percutaneous Approach (ICD-10-PCS; 2018-04-12)
DX: L03.116 Cellulitis of left lower limb (principal); L97.929 Non-pressure chronic ulcer of unspecified part of left lower leg with unspecified severity; E11.622 Type 2 diabetes mellitus with other skin ulcer; L03.115 Cellulitis of right lower limb; B95.2 Enterococcus as the cause of diseases classified elsewhere; I87.2 Venous insufficiency (chronic) (peripheral); E66.01 Morbid (severe) obesity due to excess calories; Z68.43 Body mass index [BMI] 50.0-59.9, adult; Z16.39 Resistance to other specified antimicrobial drug; I10 Essential (primary) hypertension; E78.00 Pure hypercholesterolemia, unspecified; E78.5 Hyperlipidemia, unspecified; M19.90 Unspecified osteoarthritis, unspecified site